=== PATIENT | male | born 1950 | race Caucasian/White ===

== ENCOUNTER 2017-07-31 17:22 | Emergency (ER) | payer OTHER, MEDICAID ==
--- NOTE | 2017-07-31 18:15 | EDPHY ---
General - History Smoking Status: Former smoker Narrative: CHIEF COMPLAINT: Right knee pain HISTORY OF PRESENT ILLNESS: Patient presents by EMS with reports of right knee pain. This started abruptly this afternoon. He said he went to [facility] this morning. He came home and with sleep. He he left his right knee brace on from chronic abnormalities. He awoke to get out of bed when his certified nurse today with there, and he had difficulty ambulating due to pain. He did not fall or strike the knee. He does not recall the knee bending or twisting awkwardly. He just felt a sudden onset of pain in the entire knee. Unable to bear weight due to it. No numbness or tingling distally. No injury elsewhere. No bleeding. No laceration. 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 No other associated complaints or modifying factors. ESTABLISHED ORTHOPEDIST: Dr. Ambrocio in [place] Dr. Mary, Plastics REVIEW OF SYSTEMS: Ten systems reviewed and are negative unless otherwise noted in the HPI PAST MEDICAL HISTORY: Right knee osteosarcoma PAST SURGICAL HISTORY: Right knee plastic surgery, and right knee TKA time 6 SOCIAL HISTORY: Nonsmoker. No alcohol use. FAMILY HISTORY: Noncontributory EXAMINATION General Appearance: Alert, no distress Cardiovascular: Pulses normal throughout. Symmetric DP pulses 2+. Symmetric PT pulses 2+. Brisk cap refill Neurological: A&O, light sensation symmetric on the dorsum of both feet. Normal proprioception of the right great toe., strength symmetric in both ankles. Skin: Warm and dry, no rash. No lacerations abrasions or contusions. Well- healed surgical incisions on the right knee consistent with his history Extremities: Abnormal appearance of the right knee that the patient says is baseline. Flexion extension of the right knee retain but painfully so. No special says performed due to extensive surgical correction of the knee. Psychiatric: Mood and affect normal DIFFERENTIAL DIAGNOSES: Including but not limited to fracture, subluxation, dislocation, sprain, strain MDM: 5:47 p.m. Acute right-sided knee pain in a patient with extensive history in the right knee. Although the knee is very unusual in appearance, the patient feels that this is relatively baseline for him. The pain however is not. He has no neurovascular complaints distally. He has no blunt trauma or fall on this knee. He retains flexion extension. He is being examined by myself and Dr. Marquez. He is in no acute distress with symmetric DP and PT pulses. X-rays pending. 6:20 p.m. X-rays reviewed with Dr. Marquez. These are similar to the 2013 x-rays here which were read as dislocation. The patient remains neuro intact with strong DP and PT pulses. 6:25 p.m. Contacted by radiologist Dr. Paige. We had extensive conversation about the x -ray. Difficult to tell this is truly dislocated or not. It is similar appearance from 2013 study which was read as dislocation. I have paged his established orthopedist in [facility] to discuss. 6:33 p.m. Case discussed with the patient's establish surgeon Dr. Ambrocio. He is requesting images. With the patient's permission, I have sent him images without any identifying information on them. He will review and call me back. This was done through the [facility] transfer Center recorded line. 6:[address] Ambrocio as reviewed the films but he contacted me and informed that this is a dislocation he would like the patient to be transferred to him directly. This [facility] be [facility] [place]. He does not want us to obtain a CT angiography of the leg. He does want the patient and a straight leg immobilizer. No further orders. We have adhere to these recommendations. We are proceeding with transfer as soon as possible. 6:40 p.m. I discussed this plan with the patient. He agrees. He is currently being placed in an immobilizer. He remains neurovascular intact distal to the injury. We are still coordinating with transfer Center. 7:00 p.m. Still awaiting the bed assignment from [facility]. Patient remains neurovascular intact with DP and PT pulses 2+. 7:15 p.m. Patient has been accepted to [facility], accepting physician is Dr. Ambrocio. He has been accepted to room 852. [facility] is arranging transportion due to significant delay on our end due to volume through [facility]. 8:00 p.m. Patient is currently being transferred to [facility] by [facility] crew. Prior to discharge I re-evaluated him, his DP and PT pulses remained intact. EMTALA form was completed and signed by Dr. Marquez. He was accepted directly and will likely undego surgical revision of his knee dislocation. CT angiography was not performed as he is symmetric with his vascular status, and the accepting physician did not want us to perform this. He was transferred in stable condition. ED Precautions: Worsening pain. Erythema, edema, cyanosis, pallor, paresthesia or anesthesia. (Rodolfo Eagle) Discussion: PHYSICIAN DOCUMENTATION: The patient was evaluated and managed by the Physician Car Hopper and myself. I have reviewed the chart and agree with the findings and plan of care as documented. In addition, I examined the patient myself at on arrival. History confirmed as complicated knee hardware with multiple revisions, baseline unusual and deformed external appearance, could not walk on it today after moving it trying to get out of bed. Does not have numbness or weakness in the foot. Physical findings as follows: T 36.9, Can move his right foot, it is warm and well perfused, dorsalis pedis pulse present. Chronically deformed right knee, no skin tenting, compartments soft. Patient will be transferred to [facility] for specialized orthopedic care in his revised artificial joints not available at [facility]. Discussed with the patient and consented. He would like to go to his surgeon down in [place], patient request. Transported by [facility]. Risk benefit alternatives discussed with the patient, consented. At this point he appears to have stable vascular status and although arterial injury is considered I think it is unlikely. I am the secondary supervising physician. (Giuseppe Marquez) - Objective Vital Signs: Initial Vital Signs Heart Rate 76 07/31/17 18:00 Respiratory Rate 16 07/31/17 18:00 Blood Pressure 120/76 07/31/17 18:00 O2 Sat (%) 95 07/31/17 18:00 O2 Delivery Mode Room Air Allergies/Adverse Reactions: sulfamethoxazole [From Bactrim] Allergy (Mild, Verified 08/07/12 14:56) Anxiety trimethoprim [From Bactrim] Allergy (Mild, Verified 08/07/12 14:56) Anxiety Home Medications: Medication Instructions Recorded Oxycodone Ir [Oxy Ir 5 mg (RX)] 1 tab PO TID PRN 06/26/12 Levaquin 07/31/17 Laboratory Results: Laboratory Results 07/31/17 19:20 07/31/17 19:20 07/31/17 07/31/17 19:20 19:20 PT 13.1 SEC SEC (12.0-15.0) INR 1.00 (0.83-1.16) APTT 25.9 SEC SEC (23.0-38.0) Sodium 137 mEq/L mEq/L (134-144) Potassium 4.7 mEq/L mEq/L (3.5-5.2) Chloride 100 mEq/L mEq/L (97-110) Carbon Dioxide 22 mEq/l mEq/l (22-31) Anion Gap 15 mEq/L mEq/L (8-16) BUN 22 mg/dL mg/dL (7-23) Creatinine 1.3 mg/dL mg/dL (0.7-1.3) Estimated GFR 55 Glucose 86 mg/dL mg/dL (70-100) Calcium 10.3 mg/dL mg/dL (8.5-10.4) Departure - Departure Disposition: [facility] Clinical Impression: Dislocation of knee, right, closed Qualifiers: Encounter type: initial encounter Qualified Code(s): S83.104A - Unspecified dislocation of right knee, initial encounter Condition: Good Referrals: AUDREY AMBROCIO [Non Staff Provider (MD)] - As per Instructions
[2017-07-31 19:28] LABS: % IMMATURE GRANULYOCYTES 0.6 % (0.0-1.1); ABSOLUTE IMMATURE GRANULOCYTES 0.05 10^3/uL (0.00-0.10); ADD DIFF? NO; ADD MORPH? NO; ADD SCAN? NO; ATYPICAL LYMPHOCYTE FLAG 0 (0-99); FRAGMENT RBC FLAG 0 (0-99); HEMATOCRIT 48.8 % (40.0-51.0); HEMOGLOBIN 16.3 g/dL (13.7-17.5); LEFT SHIFT FLG 0 (0-99); LIPEMIA HEMOLYSIS FLAG 80 (0-99); MEAN CELL HEMOGLOBIN 28.8 pg (27.9-34.1); MEAN CELL HEMOGLOBIN CONCENTR. 33.4 g/dL (32.4-36.7); MEAN CELL VOLUME 86.2 fL (81.5-99.8); MEAN PLATELET VOLUME 9.1 fL (8.7-11.7); PLATELET CLUMPS FLAG 10 (0-99); PLATELET COUNT 233 10^3/uL (150-400); RED BLOOD CELL COUNT 5.66 10^6/uL (4.40-6.38); RED CELL DISTRIBUTION WIDTH 17.1 % (11.5-15.2)
[2017-07-31 19:44] VITALS: PULSE 76; RESP 16; O2SAT 95
[2017-07-31 19:46] VITALS: TEMP 98.4
[2017-07-31 19:47] VITALS: BP 124/82
[2017-07-31 19:52] LABS: APTT 25.9 SEC (23.0-38.0); PROTIME(PATIENT) 13.1 SEC (12.0-15.0)
[2017-07-31 19:58] LABS: ANION GAP 15 mEq/L (8-16); CALCIUM 10.3 mg/dL (8.5-10.4); CARBON DIOXIDE 22 mEq/l (22-31); CHLORIDE 100 mEq/L (97-110); CREATININE 1.3 mg/dL (0.7-1.3); GLOMERULAR FILTRATION RATE 55; GLUCOSE 86 mg/dL (70-100); POTASSIUM 4.7 mEq/L (3.5-5.2); SODIUM 137 mEq/L (134-144)
== END 2017-07-31 19:47 | disposition short-term general hospital (02) ==
LOC: EDUNIT#
DX: S83.104A Unspecified dislocation of right knee, initial encounter (principal); Z87.891 Personal history of nicotine dependence; X58.XXXA Exposure to other specified factors, initial encounter
CPT/HCPCS: 73564; 99285; L1830; 82947-QW

== ENCOUNTER 2017-08-28 09:34 | Inpatient (IN) | payer OTHER, MEDICAID ==
[2017-08-28] MEDS ORDERED: NS 1,000 ML IV ONE (09:53)
[2017-08-28] MEDS ORDERED: ONDANSETRON DISINTEGRATING 4 MG TAB PO ONE (10:19)
[2017-08-28 10:43] LABS: PLATELET COUNT 313 10^3/uL (150-400)
[2017-08-28] MEDS ORDERED: PROMETHAZINE HCL 25 MG/ML INJ IVP ONE (10:53)
[2017-08-28] MEDS ORDERED: PROMETHAZINE HCL 25 MG/ML INJ ONE (10:54)
[2017-08-28] MEDS ORDERED: IOPAMIDOL (ISOVUE-300) 100 ML BTL ONE (11:32)
--- NOTE | 2017-08-28 12:13 | EDPHY ---
H & P Stated Complaint: N/V/D - Personal History Current Tetanus Diphtheria and Acellular Pertussis (TDAP): Unsure - Medical/Surgical History Hx Asthma: No Hx Chronic Respiratory Disease: No Hx Diabetes: No Hx Cardiac Disease: No Hx Renal Disease: No Hx Cirrhosis: No Hx Alcoholism: No Hx HIV/AIDS: No Hx Splenectomy or Spleen Trauma: No Other PMH: multiple knees surgeries, cerebral aneurysm, "prostate, lung, knee cancer" Hep C - Social History Smoking Status: Former smoker Time Seen by Provider: 08/28/17 09:36 HPI/ROS: Chief complaint: Nausea, vomiting and diarrhea History of present illness: This is a 67-year-old male who presents to the emergency department for nausea, vomiting and diarrhea. He reports the sudden onset of symptoms earlier this morning. Symptoms have been persistent with both continued vomiting and diarrhea. He has had associated abdominal pain. He does report he has noted some bright red blood in his stool. He denies other associated signs or symptoms including no fevers, no urinary symptoms, no mucus in the stools. He denies precipitating factors. He denies alleviating factors. No sick contacts. Review of systems: A 10 point review of systems was obtained and other than described above was negative (Lio Sosa) - Physical Exam Exam: General Appearance: Alert, unwell appearing. Eyes: Pupils equal and round no pallor or injection. ENT, Mouth: Mucous membranes moist. Respiratory: There are no retractions, lungs are clear to auscultation. Cardiovascular: Regular rate and rhythm. Gastrointestinal: Bowel sounds are normal. Abdomen is soft and nondistended. Diffuse tenderness to palpation. Neurological: Alert and oriented x4. Strength and sensation intact and symmetrical. Skin: Warm and dry, no rashes. Musculoskeletal: Neck is supple non tender. Extremities are symmetrical, full range of motion. Psychiatric: Patient is oriented X 3, there is no agitation. (Lio Sosa) Constitutional: Initial Vital Signs Temperature (C) 37.2 C 08/28/17 09:41 Heart Rate 72 08/28/17 09:41 Respiratory Rate 18 08/28/17 09:41 Blood Pressure 136/82 H 08/28/17 09:41 O2 Sat (%) 97 08/28/17 09:41 O2 Delivery Mode Room Air Allergies/Adverse Reactions: sulfamethoxazole [From Bactrim] Allergy (Mild, Verified 08/07/12 14:56) Anxiety trimethoprim [From Bactrim] Allergy (Mild, Verified 08/07/12 14:56) Anxiety Home Medications: Medication Instructions Recorded Oxycodone Ir [Oxy Ir 5 mg (RX)] 1 tab PO Q4-6PRN PRN 06/26/12 levOFLOXACIN [levAQUIN (*)] 500 mg PO DAILY@10 07/31/17 Fluticasone Nasal [Flonase Nasal 1 sprays NASAL DAILY 08/28/17 [place] (RX)] Potassium Chloride [Klor-Con M20] 20 meq PO DAILY 08/28/17 clonazePAM [Klonopin (*)] 0.5 mg PO DAILY PRN 08/28/17 Medical Decision Making ED Course/Re-evaluation: Patient seen in conjunction with my secondary supervising physician Dr. Hawa Ashford. Patient presents to the emergency department for nausea, vomiting and diarrhea. On presentation he is unwell appearing, vital signs are stable. He is worked up, significant findings noted for a new bladder mass that could be malignant. He is symptomatically treated. He remains unwell appearing. He is not tolerating oral challenges well. He will be admitted for symptomatic care and further evaluation of the bladder mass. (Lio Sosa) Differential Diagnosis: Included but not limited to gastritis, gastroenteritis, biliary tract disease, pancreatitis, colitis (Lio Sosa) Other Provider: I have evaluated and participated in the management of this patient. My co- signature indicates that I have reviewed this chart and that I agree with the findings and the plan of care as documented. My personal history and physical findings include: 67-year-old male with persistent nausea and vomiting and 1 episode of diarrhea. He has not been aware of blood in his vomitus or stool. He reports midepigastric pain that has also been persistent today. Despite IV fluids and antiemetics he has continued with nausea and occasional vomiting in the emergency department. CT scan of the abdomen and pelvis is negative for obstruction (a bladder mass is noted). He does not have fever. No recent travel or exposure to spoiled foods. No ill contacts. This could be a gastroenteritis, but he has not had much in the way of diarrhea. Initial hemoglobin and hematocrit are within normal limits. On exam he is a somewhat ill-appearing gentleman, anicteric, afebrile. Lungs are clear to auscultation. Heart has a regular rate and rhythm. Abdomen is soft with mild midepigastric tenderness, no guarding. Because of his ongoing nausea I feel that he will benefit from hospitalization and continued IV fluids and antiemetics. He is being admitted by Dr. Brianna ugarte. Patient is aware of the bladder mass. He has a history of cancers and will have outpatient evaluation. (Hawa Ashfodr) - Data Points Laboratory Results: Laboratory Results 08/28/17 10:32 08/28/17 10:32 Microbiology Results: MICROBIOLOGY 08/28/17 07:50 Stool Gastrointestinal Tract Panel (PCR) - Final Clostridium Difficile Detected Medications Given: Clonazepam (Klonopin) 0.5 mg PO DAILY PRN PRN Reason: Anxiety Stop: 02/24/18 15:33 Last Admin: 08/28/17 21:49 Dose: 0.5 mg Fentanyl (Sublimaze) 50 mcg IVP Q4HRS PRN PRN Reason: Pain, Severe Unable to Take PO Stop: 09/07/17 20:48 Last Admin: 08/28/17 21:49 Dose: 50 mcg Sodium Chloride (Ns) 1,000 mls @ 125 mls/hr IV CONT LOKESH Stop: 02/24/18 15:29 Last Admin: 08/29/17 10:49 Dose: 1,000 mls Levofloxacin (Levaquin) 500 mg PO DAILY@10 LOKESH PRN Reason: Protocol Stop: 09/28/17 09:59 Last Admin: 08/29/17 09:39 Dose: 500 mg Oxycodone HCl (Oxycodone Ir) 5 - 10 mg PO Q3HRS PRN PRN Reason: Pain, Severe Able to Take PO Stop: 09/07/17 15:29 Last Admin: 08/29/17 10:48 Dose: 5 mg Pantoprazole Sodium (Protonix) 40 mg IVP BID LOKESH Stop: 02/24/18 20:59 Last Admin: 08/29/17 09:39 Dose: 40 mg Promethazine HCl (Phenergan) 6.25 - 12.5 mg IVP Q6HRS PRN PRN Reason: Nausea/Vomiting, Use 2nd Stop: 02/24/18 15:29 Last Admin: 08/29/17 12:39 Dose: 6.25 mg Discontinued Medications Diphenhydramine HCl (Benadryl Injection) 25 mg IVP EDNOW ONE Stop: 08/28/17 10:54 Last Admin: 08/28/17 10:56 Dose: 25 mg Hydromorphone HCl (Dilaudid) 0.5 mg IVP EDNOW ONE Stop: 08/28/17 13:10 Last Admin: 08/28/17 13:25 Dose: 0.5 mg Sodium Chloride (Ns) 1,000 mls @ 0 mls/hr IV EDNOW ONE; Wide Open PRN Reason: Protocol Stop: 08/28/17 09:54 Last Admin: 08/28/17 09:56 Dose: 1,000 mls Ondansetron HCl (Zofran Odt) 4 mg PO EDNOW ONE Stop: 08/28/17 10:20 Last Admin: 08/28/17 10:22 Dose: 4 mg Promethazine HCl (Phenergan) 12.5 mg IVP EDNOW ONE Stop: 08/28/17 10:54 Last Admin: 08/28/17 10:56 Dose: 12.5 mg Departure - Departure Disposition: [facility] Clinical Impression: Bladder mass Vomiting Qualifiers: Vomiting type: unspecified Vomiting Intractability: non-intractable Nausea presence: with nausea Qualified Code(s): R11.2 - Nausea with vomiting, unspecified Diarrhea Qualifiers: Diarrhea type: unspecified type Qualified Code(s): R19.7 - Diarrhea, unspecified Abdominal pain Qualifiers: Abdominal location: generalized Qualified Code(s): R10.84 - Generalized abdominal pain Condition: Fair
[2017-08-28] MEDS ORDERED: HYDROmorphONE/DILAUDID 1 MG/ML INJ IVP ONE (13:09)
--- NOTE | 2017-08-28 16:22 | GHP ---
[f rep st] HISTORY AND PHYSICAL DATE OF ADMISSION: 08/28/2017 CHIEF COMPLAINT: Nausea and vomiting. HISTORY OF PRESENT ILLNESS: The patient is a pleasant 67-year-old gentleman with a complex medical h istory, who presented to the [facility] via ambulance after developing epigastric discomfort associated with nausea and recurrent vomiting, having 15-20 episodes of emesis throughout the morning. With the persistence of symptoms, the patient called EMS and was brought to [facility] for further evaluation. The patient states the emesis was not bloody in color, but it did appear dark green and dark black in color. No coffee grounds specifically were men tioned. He also had 1 episode of loose stools this morning as well, which he also described as dark in color, but not bloody. He has not had any recurrent diarrhea throughout the day today. No subjec tive fevers. No identified sick contacts. No recent travel outside the country. He did state that he took ibuprofen this morning for knee discomfort, but he does not have a history of regular NSAID u se. He has a history of a chronic right knee infection, for which he takes Levaquin 500 mg daily, an d is followed locally by Dr. Braden Sim with Infectious Disease. For his chronic pain related to the knee, he has oxycodone. In the emergency room, he had a CT scan done for further evaluation. This d id not show any gallbladder or bile duct findings. The pancreas was also normal. There was no evide nce of bowel obstruction or ileus. A bladder mass was identified, which did look suspicious for a ne oplasm, which was localized at the right UVJ with associated moderate right-sided hydronephrosis. Du e to the patient's persistent nausea and vomiting, he is being admitted for further investigation. PAST MEDICAL HISTORY: 1. Cerebral aneurysm status post coiling. 2. Prostate cancer status post radiation therapy. 3. Lung cancer status post left lower lobe lobectomy and chemotherapy. 4. 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 5. Osteosarcoma of the right knee with subsequent prosthesis placement. 6. Chronic hepatitis C. PAST SURGICAL HISTORY: 1. Aneurysm coiling. 2. Left lower lobe lung lobectomy. 3. Right knee surgery for excision of osteosarcoma and subsequent placements of prosthesis. This wa s followed by surgery at [facility] in [place]. PRESCRIPTION MEDICATIONS: 1. Levaquin 500 mg daily. 2. Oxycodone 5 mg every 4 hours as needed. ALLERGIES: Sulfa. SOCIAL HISTORY: The patient is originally from [place]. He was a previous smoker, but currently dickey s not smoke. He has never been and has no children. His power of audit officer, he states, would be his brother, who is a solar energy engineer in [place]. He is a full code status. FAMILY HISTORY: Father is . He from "old age." Mother is also . She fro m complications related to Parkinson disease. REVIEW OF SYSTEMS: CONSTITUTIONAL: No subjective fevers or chills. No recent weight changes. ENT: No recent upper respiratory illnesses. CARDIOVASCULAR: No complaints of chest pains, palpitations, o r syncopal episodes. RESPIRATORY: No complaints of shortness of breath or productive cough. GI: Posi tive for epigastric discomfort associated with nausea and recurrent vomiting. One episode of loose s tool today. No red blood noted in either the emesis or the stool, but he did note a dark-colored sto ol and emesis. PSYCHIATRIC: No history of anxiety or depression. ENDOCRINE: No history of diabetes o r thyroid abnormalities. SKIN: No new skin rashes. MUSCULOSKELETAL: Other than this chronic right k nee pain, no other new focal joint pains. PHYSICAL EXAM: VITAL SIGNS: Temperature 37.2, blood pressure 136/82, heart rate 72, respirations 18 , saturating 97% on room air. GENERAL: Patient resting comfortably in no acute distress. He is domi ke, alert, conversant, able to provide a good history. HEENT: Extraocular movements intact. Pupils are equal. No scleral icterus noted. NECK: Supple. No adenopathy. No thyroid enlargement apprec iated. CHEST: Clear on auscultation. Normal respiratory effort. HEART: Regular rate and rhythm. No murmurs. ABDOMEN: No tenderness elicited with palpation at the epigastrium. Bowel sounds are n ormal. Nondistended. : No Tello catheter in place. EXTREMITIES: No significant pitting edema. He does have a brace around his right knee, which I did not remove. NEUROLOGIC: Cranial nerves 2-1 2 appear intact. Strength 5/5 in all extremities, except limited testing of the right lower extremit y secondary to the placement of his brace. LABS: White blood cell count is 10, hemoglobin 13, platelets 313. Sodium is 146, potassium 4.1, chl oride 105, bicarb 26, BUN 38, creatinine 1.3, glucose of 134. AST 37, ALT 26, alkaline phosphatase 7 2, total protein is 8.7. Lipase is 111. Urinalysis showed 1+ leukocyte esterase with 50-180 WBCs, n egative for blood. IMAGING: CT abdomen and pelvis as detailed in HPI. ASSESSMENT AND PLAN: 1. Nausea with recurrent vomiting and 1 episode of diarrhea, uncertain etiology currently. This cer tainly could be infectious in origin, but I do not think we can exclude the possibility of an upper g astrointestinal bleed, either, in light of his epigastric discomfort. No worrisome findings on the C T imaging other than the bladder mass. His hemoglobin today is within normal limits at 13.7, but in looking back at a recent hemoglobin done approximately 1 month ago, it was at a level of 16.3. I rec ommend further evaluation with a GI pathogen panel, as well as Hemoccult of stools with serial hemogl obin and hematocrit. Would administer IV fluids overnight along with IV Protonix. 2. Bladder mass. We discussed this in detail and stressed the importance of outpatient followup on this issue. I did discuss with him that our step would really be a Urologic consultation and that we do have a urologist here in town, so he may not need to be traveling to [place] [facility]. I recommended that he consult with Dr. Garcia after hospital discharge, an d then a referral to Urology could take place at that point in time for further investigation. He do es have a smoking history previously. 3. Elevated protein. His total protein level was elevated at 8.7. I do not know if this could be s ome element of volume depletion from his recurrent nausea. We will plan on rechecking this tomorrow morning for reassessment after IV fluids overnight. 4. Possible urinary tract infection. Will check a urine culture. The patient is on daily Levaquin for his right knee infection. 5. Chronic right knee infection. This is related to a knee prosthesis which was placed after surger y for osteosarcoma. He is followed by Dr. Braden Sim here locally and his surgeon is in [facility] at the [facility]. 6. Bowel and bladder. Will hold off on stool softeners in light of the loose stools noted earlier. 7. Deep venous thrombosis prophylaxis. Will use compression devices overnight. Will hold on hepari n or Lovenox until we have an opportunity to trend his hemoglobin level. DISPOSITION: Will admit him under inpatient status, as we may need over 2 midnights in following his clinical status. /[id number]/MODL
[2017-08-28] MEDS: NS 1,000 ML IV SCH (18:02)
[2017-08-28] MEDS: PROMETHAZINE HCL 25 MG/ML INJ IVP PRN (18:07)
[2017-08-28] MEDS: PANTOPRAZOLE SODIUM 40 MG VIAL IVP SCH (19:56)
[2017-08-28] MEDS: fentaNYL 100 MCG/2 ML INJ IVP PRN (21:49)
[2017-08-28] MEDS: clonazePAM 0.5 MG TAB PO PRN (21:49)
[2017-08-29] MEDS: PANTOPRAZOLE SODIUM 40 MG VIAL IVP SCH (09:39)
--- NOTE | 2017-08-29 09:39 | ASMTCMCOM ---
CM Note CM Note Notes: 67 year old male admitted for N/V, bladder mass. He has a hx of cerebral aneurysm S/P coil, Prostate CA, Lung CA, bone CA R knee-prosthesis, chronic R knee infection, pain, Chronic Hep C. Has been involved with [facility]. CM to follow for discharge needs. Date Signed: 08/29/2017 09:39 AM Electronically Signed By:Sinai Villarreal LCSW
[2017-08-29] MEDS: oxyCODONE IR 5 MG TAB PO PRN ×2 (10:48→21:05)
[2017-08-29] MEDS: NS 1,000 ML IV SCH ×2 (10:49→18:28)
--- NOTE | 2017-08-29 12:10 | PDMN ---
Medical Necessity Medical necessity: Pt meets IP criteria per MD; est los >2 mn for eval/tx of nausea w/recurrent vomiting, bladder mass; admit for further workup/monitoring, IVFs & IV Protonix; hx cerebral aneurysm s/p coiling, prostate cancer s/p radiation therapy, lung cancer s/p L lower lobectomy & chemo, chronic R knee infection s/p R knee surgery (excision of osteosarcoma & prosthesis placement) on abx; per H&P & order 08/28/17
[2017-08-29] MEDS: PROMETHAZINE HCL 25 MG/ML INJ IVP PRN ×2 (12:39→18:28)
--- NOTE | 2017-08-29 14:54 | HOSPPROG ---
Hospitalist Progress Note Assessment/Plan: 67 yo M with hx of cerebral aneurysm, prostate and lung CA, chronic knee infection pw persistent n/v and diarrhea found to have c diff. # c diff: in the setting of prolonged chronic levaquin for chronic knee infection. Started on po vancomycin, diarrhea already seems to have improved. Given need for prolonged abx therapy for his knee will ask for ID consult to help with treatment plan/abx therapy going forward. # n/v: this has resolved essentially completely, was occurring in conjunction with c diff but unclear if related. Tolerating diet at this time. # bladder mass: noted on CT imaging, patient states he has had some urinary sxs in the past including increased UOP and occasionally passing something in the urine other than urine but not blood. Recommend f/u with urology as an OP. # pyuria: patient denies any current urinary sxs, though he is difficult to follow as he is very tangential in his history. At this time will hold off on any targeted tx for UTI pending urine culture results. # chronic knee infection: has been on suppressive therapy with levaquin as above , will ask ID to consult # dispo: IP status, will need > 48 hours stay for eval/mgmt of above Patient new to my care. Old records reviewed and summarized as above. Subjective: no significant overnight events, patient notes diarrhea nearly resolved and n/v essentially resolved overnight, very tangential Objective: Vital Signs Temp Pulse Resp BP Pulse Ox 37.1 C 59 L 17 141/78 H 95 08/29/17 13:03 08/29/17 13:03 08/29/17 13:03 08/29/17 13:03 08/29/17 13:03 Laboratory Results 08/29/17 04:41 08/29/17 04:41 08/28/17 08/29/17 08/30/17 05:59 05:59 05:59 Intake Total 1850 Output Total 680 625 Balance 1170 -625 awake alert nad anicteric op clear rrr no mrg cta b soft nt nd no cce, surgical site over right knee cdi, sutures in place oriented tangential pressured speech - Time Spent With Patient Time Spent with Patient: greater than 35 minutes Time Spent with Patient: Greater than 35 minutes spent on this patients care, greater than 50% of time spent counseling, educating, and coordinating care regarding the above mentioned plan. ICD10 Worksheet Patient Problems: Problems Problem Status Onset Dislocation of knee, right, closed Acute Vomiting Acute Diarrhea Acute Abdominal pain Acute Bladder mass Acute
[2017-08-29] MEDS: ONDANSETRON 4 MG/2 ML VIAL IVP PRN ×2 (15:37→21:05)
[2017-08-29] MEDS: FLUTICASONE NASAL 120 SPRAYS/16 GM MDI EACHNARE SCH (15:38)
[2017-08-29] MEDS ORDERED: VANCOMYCIN 125 MG/2.5 ML UDL PO SCH (16:00)
--- NOTE | 2017-08-29 17:22 | PCMIDPN ---
Assessment/Plan: Assessment/Plan: * Gastroenteritis: Symptom complex primarily epigastric pain with nausea and vomiting with limited amounts of diarrhea. Limited diarrhea atypical for C difficile colitis. May be of viral etiology despite negative PCR panel for viral etiologies. Positive C diff assay by PCR may simply represent colonization rather than being associated with disease presentation. Will therefore discontinue oral vancomycin and observe off antibiotics. If diarrhea becomes more prominent, then will require treatment of C difficile as has risk factor of chronic antibiotic use and significant healthcare contact including snf facility stay. 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 Recent surgery for mechanical failure of prosthesis. Continue suppressive oral levofloxacin as this will be necessary indefinitely. No active signs or symptoms of recurrent septic arthritis. * Hepatitis-C: Considered cured after 12 week course of Harvoni. 08/29/17 17:19 08/29/17 17:25 08/29/17 17:26 Subjective: Patient well known to me from prior care for right total knee arthroplasty septic arthritis on chronic suppressive levofloxacin who I am asked to see in consultation for nausea, vomiting and diarrhea with positive C difficile toxin by PCR. Patient complains of abrupt onset of nausea and vomiting on 2016. This occurred all night and he was unable to tolerate p. o. intake. He did have 1 episode of diarrhea preceding his vomiting. Yesterday, he did not have any diarrhea but also had crampy epigastric pain. This morning he felt improved but had recurrent nausea this p.m.. He describes having 1 episode of diarrhea today. He recently underwent revision of his right total knee arthroplasty/ tumor prosthesis at the [facility] for prosthesis failure. He does not describe having any hardware exposed. He now is at [facility] undergoing rehabilitation. Objective: Vital Signs Temp Pulse Resp BP Pulse Ox 37.2 C 71 17 127/73 H 95 08/29/17 16:47 08/29/17 16:47 08/29/17 16:47 08/29/17 16:47 08/29/17 16:47 Laboratory Results 08/29/17 15:55 08/29/17 04:41 08/28/17 08/29/17 08/30/17 05:59 05:59 05:59 Intake Total 1850 Output Total 680 1055 Balance 1170 -1055 Suppressive levofloxacin Oral vancomycin 125 mg four times daily ( has not started yet ) GI pathogen panel by PCR positive for C difficile - Physical Exam General Appearance: alert, no apparent distress, non-toxic EENT: No scleral icterus, No thrush Extremities: inflammation ( Right knee incision intact without erythema or drainage; palpable fluid present; nontender; mild overlying warmth) Abdomen: non-tender, No distended ICD10 Worksheet Patient Problems: Problems Problem Status Onset Abdominal pain Acute Bladder mass Acute Diarrhea Acute Vomiting Acute Dislocation of knee, right, closed Acute
[2017-08-29] MEDS: clonazePAM 0.5 MG TAB PO PRN (21:06)
[2017-08-30] MEDS: ONDANSETRON 4 MG/2 ML VIAL IVP PRN ×2 (09:05→14:33)
[2017-08-30] MEDS: FLUTICASONE NASAL 120 SPRAYS/16 GM MDI EACHNARE SCH (10:33)
--- NOTE | 2017-08-30 11:53 | HOSPPROG ---
Hospitalist Progress Note Assessment/Plan: 67 yo M with hx of cerebral aneurysm, hx of prostate and lung CA, chronic knee infection admitted with dehydration, N/V, and slight diarrhea. Initially started on PO Vancomycin for PCR + C-Diff. Upon ID eval, felt that this is likely colonization due to small amount of diarrhea. No further diarrhea, off abx still with decreased oral due to nausea still with generalized abd discomfort No generalized weakness, refuses PT #+PCR C-Diff. -likely colonization #Diarrhea: improving -Likely gastroenteritis #Nausea and vomiting -improving -trial of protonix -antiemetics #Dehydration -monitor off IVF (will stop today) -encourage PO # bladder mass: noted on CT imaging, patient states he has had some urinary sxs in the past including increased UOP and occasionally passing something in the urine other than urine but not blood. Recommend f/u with urology as an OP. # pyuria: patient denies any current urinary sxs, though he is difficult to follow as he is very tangential in his history. At this time will hold off on any targeted tx for UTI pending urine culture results. # chronic knee infection/Hx of septic arthritis on a pt with hx of Right Arthroplasty: has been on suppressive therapy with levaquin as above, will ask ID to consult #Hx of Hep C # dispo: IP status, will need > 48 hours stay for eval/mgmt of above. Keep inpatient Patient new to my care. Old records reviewed and summarized as above. Subjective: feels better. no further diarrhea. Still with Nause. Some abd discomfort Objective: Vital Signs Temp Pulse Resp BP Pulse Ox 36.6 C 71 16 118/78 90 L 08/30/17 07:49 08/30/17 07:49 08/30/17 07:49 08/30/17 07:49 08/30/17 07:49 Laboratory Results 08/30/17 08:00 08/30/17 08:00 08/29/17 08/30/17 08/31/17 05:59 05:59 05:59 Intake Total 1850 1592 Output Total 680 1555 375 Balance 1170 37 -375 - Physical Exam Constitutional: no apparent distress Eyes: PERRL Ears, Nose, Mouth, Throat: moist mucous membranes, hearing normal Cardiovascular: regular rate and rhythym, No edema Respiratory: no respiratory distress, no rales or rhonchi, clear to auscultation Gastrointestinal: normoactive bowel sounds, soft, non-tender abdomen, no palpable masses Skin: warm Musculoskeletal: full muscle strength Neurologic: AAOx3 Psychiatric: interacting appropriately, not anxious, not encephalopathic Lymph, Heme, Immunologic: No petechiae ICD10 Worksheet Patient Problems: Problems Problem Status Onset Abdominal pain Acute Bladder mass Acute Diarrhea Acute Vomiting Acute Dislocation of knee, right, closed Acute
[2017-08-30] MEDS: PANTOPRAZOLE SODIUM 40 MG TAB PO SCH (14:23)
[2017-08-30] MEDS: PROMETHAZINE HCL 25 MG/ML INJ IVP PRN ×2 (16:00→22:38)
--- NOTE | 2017-08-30 19:41 | PCMIDPN ---
Assessment/Plan: Assessment/Plan: * Gastroenteritis: Overall markedly improved with some residual nausea but no recurrent vomiting and no subsequent diarrhea. Suspect most likely due to viral gastroenteritis with C difficile toxin positivity representing colonization rather than C difficile colitis. Continue to observe without therapy directed at C difficile. Advised patient to notify me if he has recurrent diarrhea at which point in time would proceed with oral vancomycin for C difficile. Likely can be discharged home tomorrow if nausea and vomiting controlled with adequate p.o. intake. 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 Recent surgery for mechanical failure of prosthesis. Clinically without active findings to suggest recurrent septic arthritis. Continue suppressive oral levofloxacin. * Hepatitis-C: Considered cured after 12 week course of Harvoni. 08/30/17 19:38 Subjective: Overall feels improved today with some residual nausea but no vomiting. No further diarrhea. Ate some breakfast. Objective: Vital Signs Temp Pulse Resp BP Pulse Ox 36.7 C 70 18 150/83 H 97 08/30/17 16:17 08/30/17 16:17 08/30/17 16:17 08/30/17 16:17 08/30/17 16:17 Laboratory Results 08/30/17 08:00 08/30/17 08:00 08/29/17 08/30/17 08/31/17 05:59 05:59 05:59 Intake Total 1850 1592 500 Output Total 680 1555 375 Balance 1170 37 125 Suppressive oral levofloxacin - Physical Exam General Appearance: alert, no apparent distress EENT: No scleral icterus, No thrush Cardiac/Chest: regular rate, rhythm Extremities: other ( right knee incision without erythema or drainage) Abdomen: non-tender, No distended ICD10 Worksheet Patient Problems: Problems Problem Status Onset Abdominal pain Acute Bladder mass Acute Diarrhea Acute Vomiting Acute Dislocation of knee, right, closed Acute
[2017-08-30] MEDS: oxyCODONE IR 5 MG TAB PO PRN (19:58)
[2017-08-30] MEDS: clonazePAM 0.5 MG TAB PO PRN (19:59)
[2017-08-30] MEDS: fentaNYL 100 MCG/2 ML INJ IVP PRN (22:37)
[2017-08-31] MEDS: PANTOPRAZOLE SODIUM 40 MG TAB PO SCH ×2 (08:29→20:25)
[2017-08-31] MEDS: ONDANSETRON 4 MG/2 ML VIAL IVP PRN ×2 (12:05→20:25)
[2017-08-31] MEDS: FLUTICASONE NASAL 120 SPRAYS/16 GM MDI EACHNARE SCH (12:08)
[2017-08-31] MEDS: clonazePAM 0.5 MG TAB PO PRN (13:17)
[2017-08-31] MEDS: PROMETHAZINE HCL 25 MG/ML INJ IVP PRN (13:17)
[2017-08-31] MEDS ORDERED: ONDANSETRON DISINTEGRATING 4 MG TAB PO PRN (14:32)
[2017-08-31] MEDS ORDERED: PROTOCOL POTASSIUM 1 DOSE MISC PRN (14:33)
[2017-08-31] MEDS ORDERED: PROTOCOL MAGNESIUM 1 DOSE IV PRN (14:33)
--- NOTE | 2017-08-31 14:37 | HOSPPROG ---
Hospitalist Progress Note Assessment/Plan: 67 yo M with hx of cerebral aneurysm, hx of prostate and lung CA, chronic knee infection admitted with dehydration, N/V, and slight diarrhea. Initially started on PO Vancomycin for PCR + C-Diff. Upon ID eval, felt that this is likely colonization due to small amount of diarrhea. No further diarrhea, off abx still with decreased oral due to nausea. Unfortunately his nause has worsened late morning, early afternoon still with generalized abd discomfort, although better No generalized weakness, refuses PT #+PCR C-Diff. -likely colonization #Diarrhea: resolved -Likely gastroenteritis #Nausea and vomiting -persists -Protonix seems to have helped, will increase to BID dosing -antiemetics, in addition to IV will provide PO -restart IVF #Dehydration -restart IVF -encourage PO # bladder mass: noted on CT imaging, patient states he has had some urinary sxs in the past including increased UOP and occasionally passing something in the urine other than urine but not blood. Recommend f/u with urology as an OP. # pyuria: patient denies any current urinary sxs, though he is difficult to follow as he is very tangential in his history. At this time will hold off on any targeted tx for UTI pending urine culture results. # chronic knee infection/Hx of septic arthritis on a pt with hx of Right Arthroplasty: has been on suppressive therapy with levaquin as above, will ask ID to consult #Hx of Hep C # dispo: IP status. Hopeful for d/c tomorrow Subjective: Has nausea, emesis. abd pain is better. No CP or SOB. Objective: Vital Signs Temp Pulse Resp BP Pulse Ox 36.6 C 96 18 140/98 H 93 08/31/17 13:37 08/31/17 13:37 08/31/17 13:37 08/31/17 13:37 08/31/17 13:37 Laboratory Results 08/30/17 08:00 08/30/17 08:00 08/30/17 08/31/17 09/01/17 05:59 05:59 05:59 Intake Total 1592 800 Output Total 1555 875 Balance 37 -75 - Physical Exam Constitutional: no apparent distress, appears nourished Eyes: PERRL, EOMI Ears, Nose, Mouth, Throat: moist mucous membranes, hearing normal Cardiovascular: regular rate and rhythym, No edema Respiratory: no respiratory distress, no rales or rhonchi, clear to auscultation Gastrointestinal: normoactive bowel sounds, soft, non-tender abdomen Skin: warm Musculoskeletal: full muscle strength, No generalized weakness Neurologic: AAOx3 Psychiatric: interacting appropriately, not anxious, not encephalopathic ICD10 Worksheet Patient Problems: Problems Problem Status Onset Abdominal pain Acute Bladder mass Acute Diarrhea Acute Vomiting Acute Dislocation of knee, right, closed Acute
[2017-08-31] MEDS ORDERED: POTASSIUM CL 10 MEQ TAB PO ONE (20:15)
[2017-08-31] MEDS: POTASSIUM Cl (KCl) 20 MEQ in 1/2 NS 1,000 ML IV SCH (20:26)
[2017-09-01] MEDS: FLUTICASONE NASAL 120 SPRAYS/16 GM MDI EACHNARE SCH (09:30)
[2017-09-01] MEDS: PANTOPRAZOLE SODIUM 40 MG TAB PO SCH ×2 (09:30→20:38)
[2017-09-01] MEDS: POTASSIUM Cl (KCl) 20 MEQ in 1/2 NS 1,000 ML IV SCH (11:15)
--- NOTE | 2017-09-01 13:56 | HOSPPROG ---
Hospitalist Progress Note Assessment/Plan: 67 yo M with hx of cerebral aneurysm, hx of prostate and lung CA, chronic knee infection admitted with dehydration, N/V, and slight diarrhea. Initially started on PO Vancomycin for PCR + C-Diff. Upon ID eval, felt that this is likely colonization due to small amount of diarrhea. No further diarrhea, off abx still with decreased oral due to nausea. IVF were restarted again last night still with generalized abd discomfort, although better No generalized weakness, refuses PT #+PCR C-Diff. -likely colonization #Diarrhea: resolved -Likely gastroenteritis #Nausea and vomiting -persists -Protonix seems to have helped, cont BID dosing which was increased on 09/01 -antiemetics,stop IV. Cont PO #Dehydration -resolving # bladder mass: noted on CT imaging, patient states he has had some urinary sxs in the past including increased UOP and occasionally passing something in the urine other than urine but not blood. Recommend f/u with urology as an OP. # pyuria: patient denies any current urinary sxs, though he is difficult to follow as he is very tangential in his history. At this time will hold off on any targeted tx for UTI pending urine culture results. # chronic knee infection/Hx of septic arthritis on a pt with hx of Right Arthroplasty: has been on suppressive therapy with levaquin as above, ID is following #Hx of Hep C # dispo: IP status. Plan: -Per above -Stop IVF -Stop IV antiemetics, cont PO. -PPI BID -Hopeful d/c soon Objective: Vital Signs Temp Pulse Resp BP Pulse Ox 37.1 C 77 16 149/82 H 96 08/31/17 20:11 08/31/17 20:11 08/31/17 20:11 08/31/17 20:11 08/31/17 20:11 Microbiology 08/29/17 18:33 Urine Culture - Final Urine,Clean Catch Two [place] Types Laboratory Results 08/30/17 08:00 09/01/17 08:37 08/31/17 09/01/17 09/02/17 05:59 05:59 05:59 Intake Total 800 1700 Output Total 875 400 Balance -75 1300 ICD10 Worksheet Patient Problems: Problems Problem Status Onset Abdominal pain Acute Bladder mass Acute Diarrhea Acute Vomiting Acute Dislocation of knee, right, closed Acute
--- NOTE | 2017-09-01 15:37 | ASMTCMCOM ---
CM Note CM Note Notes: Pt admitted with septic cellulitis. Plan is to transition to oral ABX and DC with no needs. Pt will f/u with outpt urology for bladder mass. C/M available if needs change. Date Signed: 09/01/2017 03:37 PM Electronically Signed By:Mae Arce LCSW
[2017-09-01] MEDS: oxyCODONE IR 5 MG TAB PO PRN ×2 (16:51→21:13)
[2017-09-01 21:08] VITALS: TEMP 98.3; O2SAT 94
[2017-09-01] MEDS: PROMETHAZINE HCL 25 MG/ML INJ IVP PRN (21:12)
[2017-09-02] MEDS: POTASSIUM Cl (KCl) 20 MEQ in 1/2 NS 1,000 ML IV SCH (00:37)
[2017-09-02] MEDS: oxyCODONE IR 5 MG TAB PO PRN (09:54)
[2017-09-02] MEDS: PROMETHAZINE HCL 25 MG/ML INJ IVP PRN (09:56)
[2017-09-02] MEDS: PANTOPRAZOLE SODIUM 40 MG TAB PO SCH (09:56)
--- NOTE | 2017-09-02 10:04 | PDIAF ---
- Diagnosis Diagnosis: abdominal pain Code Status: Full Code - Medication Management Discharge Medications: Medications to Continue on Transfer Oxycodone Ir [Oxy Ir 5 mg (RX)] 1 tab PO Q4-6PRN PRN 06/26/12 [Last Taken ] levOFLOXACIN [levAQUIN (*)] 500 mg PO DAILY@10 07/31/17 [Last Taken 08/27/17] Fluticasone Nasal [Flonase Nasal [place]] 1 sprays NASAL DAILY 08/28/17 [Last Taken Unknown] Potassium Chloride [Klor-Con M20] 20 meq PO DAILY 08/28/17 [Last Taken Unknown] clonazePAM [Klonopin (*)] 0.5 mg PO DAILY PRN 08/28/17 [Last Taken Unknown] Ondansetron Odt [Zofran Odt 4 mg (*)] 4 mg PO Q6HRS PRN #30 tab 09/02/17 [Last Taken Unknown] Pantoprazole Sodium [Protonix 40mg (*)] 40 mg PO DAILY #30 tab 09/02/17 [Last Taken Unknown] oxyCODONE IR [Oxycodone Ir (*)] 5 mg PO Q6 PRN #10 tab 09/02/17 [Last Taken Unknown] Discharge Medications: Refer to the Discharge Home Medication list for PRN reason. - Orders Services needed: Home Care, Registered Nurse Home Care Face to Face: I certify that this patient was under my care and that I had the required [id number] encounter meeting the encounter requirements on the discharge day. My findings support the fact that the patient is homebound as defined in Home Care Face to Face Continued: CMS Chapter 7 Medicare Benefits Manual 30.1.1 , The condition of the patient is such that there exists a normal inability to leave home and consequently, leaving home would require a considerable and taxing effort. Isolation Type: CDIFF Isolation, Contact Isolation Diet Recommendation: no restrictions on diet Diet Texture: Regular Texture Diet - Follow Up Care Current Providers and Referrals: Capo Garcia MD [Primary Care Provider] - As per Instructions Morelia Griffith MD [Medical Doctor] -
[2017-09-02 10:27] VITALS: BP 130/82; PULSE 93; RESP 17
[2017-09-02] MEDS ORDERED: POTASSIUM CL 10 MEQ TAB PO ONE (11:08)
[2017-09-02] MEDS: FLUTICASONE NASAL 120 SPRAYS/16 GM MDI EACHNARE SCH (11:58)
--- NOTE | 2017-09-02 13:49 | ASDISCHSUM ---
Discharge Information Plan Status:Home with Home Health Medically Cleared to Leave:09/01/2017 Discharge Date:09/02/2017 12:19 PM D/C Disposition:Home Health Service ADT D/C Disposition:Home, Routine, Self-Care Projected Discharge Date:09/02/2017 11:00 AM Transportation at D/C:Taxicab Discharge Delay Reason: Follow-Up Date:09/02/2017 11:00 AM Discharge Slot: Final Diagnosis: Placement Information Referral Type:*Home Health Care Services Referral ID:[id number] Provider Name:[facility] [place] Address 1:[address] [place] [address] Address 2: City:[place] Selection Factors: State:[place] Patient Contact Information Contact Name:TRISTIAN Relationship: Address: City:[place] Alternate Phone: State/Zip Code:[place] Email: Financial Information Financial Class: Primary Plan Desc:MEDICARE INPATIENT Primary Plan Number:[id number] Secondary Plan Desc:MEDICA[place] Secondary Plan Number:[id number] Assessment Information LACE LACE Length of stay for Answers: Less than 1 day current admission Acuity / Level of Care Answers: Was the patient admitted to hospital via the emergency department? Yes: Emergency dept visits in Answers: 2 last 6 months Score: 5 Date Signed: 08/28/2017 12:33 PM Electronically Signed By:Ilia Kessler LCSW [facility] CM Progress Note CM Note CM Note Notes: 67 year old male admitted for N/V, bladder mass. He has a hx of cerebral aneurysm S/P coil, Prostate CA, Lung CA, bone CA R knee-prosthesis, chronic R knee infection, pain, Chronic Hep C. Has been involved with [facility]. CM to follow for discharge needs. Date Signed: 08/29/2017 09:39 AM Electronically Signed By:Sinai Villarreal LCSW [facility] CM Progress Note CM Note CM Note Notes: Pt admitted with septic cellulitis. Plan is to transition to oral ABX and DC with no needs. Pt will f/u with outpt urology for bladder mass. C/M available if needs change. Date Signed: 09/01/2017 03:37 PM Electronically Signed By:Mae Arce LCSW Case Management Discharge Plan Note Case Management Discharge Discharge Order Complete? Answers: Yes Patient to Obtain Answers: Independently Medications Transportation Arranged Answers: Taxi - Self Pay Faxed Final Orders Answers: Yes Agency/Facility Transfer Answers: Yes Notes: [facility] Report Printed & Faxed to Receiving Agency Family Notified Answers: No Notes: per pt Discharge Comments Notes: 09/02/2017 Case Management Note Met w/pt. Pt plans to pay for [employer] to transport home. Resumed home care services with [facility] at pt request. Faxed orders and called [facility]. Services to start tomorrow. Notified [facility] of need to start meals at pt request. Date Signed: 09/02/2017 11:04 AM Electronically Signed By:Taylor Del Rio RN Intervention Information Intervention Type:*IM-Signed Date of Service:09/02/2017 11:50 AM Patient Type:Inpatient Staff Member:JESSICA Del Rio, Taylor Hours: Discipline: Severity: Comment:
--- NOTE | 2017-09-03 04:24 | GDS ---
[f rep st] DISCHARGE SUMMARY DISCHARGE DIAGNOSES: Include: 1. Acute abdominal discomfort with nausea vomiting and diarrhea. Suspected viral gastroenteritis. 2. Clostridium difficile colonization. 3. Dyspepsia. 4. Dehydration. 5. Suspected bladder mass seen on imaging. 6. Chronic septic arthritis. 7. History of Hepatitis C. HISTORY OF PRESENT ILLNESS: A 67-year-old male with a history of a cerebral aneurysm, prostate cance r, lung cancer, and chronic infection of the knee who presents with nausea, vomiting, and mild diarrh ea. For details of the patient's initial presentation, please see the history and physical dated . Consultative services include Infectious Disease. PROCEDURES: On 08/28/2017, the patient had a CT of the abdomen which showed a right posterior bladde r mass with moderate right-sided hydro suspicious for neoplasm, no bowel obstruction, or appendicitis noted. HOSPITAL COURSE: By issue: 1. Suspected viral gastroenteritis. The patient was provided supportive care and had improvement in his symptoms. GI pathogen PCR did show C. difficile. However, on review by Infectious Disease, the clinical syndrome of colitis was thought unlikely based on the paucity of patient's diarrhea, likely thought to be colonization and not warranting treatment. The patient had near resolution of all of his symptoms on the day of disposition and was tolerating p.o. intake. We have encouraged good oral nutrition and hydration post disposition and outpatient followup with his primary care provider. 2. Bladder mass. The patient had this visualized on CT abdomen. We have discussed this with him an d the importance of outpatient urologic followup. The patient has been provided with Urology contact numbers for post discharge followup. 3. Chronic septic arthritis. The patient is continued on his chronic levofloxacin. 4. Dyspepsia. The patient was initiated on daily proton pump inhibitor. This likely can be discont inued after resolution of his acute illness. He can follow with Dr. Garcia for ongoing symptoms and appropriate timing of discontinuation. MEDICATIONS: At the time of disposition: Please reference the med rec printed on 09/02/2017. FOLLOWUP APPOINTMENTS: Include: 1. With outpatient Urology, [facility], Dr. Doss's group. 2. With Dr. Garcia, his primary care provider, in the next 1-2 weeks for post disposition followup. PENDING STUDIES: At the time of this dictation are none. TIME SPENT: I spent greater than 30 minutes in the planning and coordination of this discharge. /[id number]
== END 2017-09-02 12:19 | disposition home or self-care (01) | DRG 392 ==
LOC: EDUNIT# → F1N 16:14
PROVIDERS: ADMIT Internal Medicine; ATTEND Internal Medicine
DX: A08.4 Viral intestinal infection, unspecified (principal); M00.861 Arthritis due to other bacteria, right knee; E86.0 Dehydration; D41.4 Neoplasm of uncertain behavior of bladder; Z85.46 Personal history of malignant neoplasm of prostate; Z85.118 Personal history of other malignant neoplasm of bronchus and lung; Z87.891 Personal history of nicotine dependence
CPT/HCPCS: 96374; J1170; J1200; J2405; J2550; J3010; Q9967

== ENCOUNTER 2017-09-11 08:36 | Emergency (ER) | payer OTHER, MEDICAID ==
[2017-09-11 08:43] VITALS: RESP 16; TEMP 97.9; O2SAT 96
--- NOTE | 2017-09-11 09:16 | EDPHY ---
General - History Smoking Status: Former smoker Time Seen by Provider: 09/11/17 08:58 Narrative: CHIEF COMPLAINT: Blood in stool, blood in urine HISTORY OF PRESENT ILLNESS: The patient complains of blood in stool and blood in urine. He says that this morning he was having a bowel movement when he stood up and noted some blood in the stool. He describes it as bright red blood, "small round clumps." One single bowel movement with this. He has not had another bowel movement. This was not painful. He was not straining. He did feel that it was a very hard stool. He has had episode of hemorrhoid in the past but nothing recently. Does not take any anticoagulants. No nausea or vomiting. No blood from the gums or teeth. He did note some hematuria with the urination just after the bowel movement. This was what concerned him, less so the blood in the stool. He has had some difficulty urinating with this as well. He has had no flank pain. No dysuria or frequent urination. No fever chills. No flank pain. No itching. No rash or discoloration of skin. Recently in the hospital and I reviewed this discharge summary. He has felt well since discharge home until this. REVIEW OF SYSTEMS: Ten systems reviewed and are negative unless otherwise noted in the HPI PCP: Dr. Garcia SPECIALISTS: Scheduled to see Dr. Griffith on September 25 PAST MEDICAL HISTORY: Hep C status post treatment, chronic right knee difficulties with 6 surgical replacement, reflux, chronic pain PAST SURGICAL HISTORY: Multiple orthopedic surgeries SOCIAL HISTORY: Nonsmoker. No alcohol use. Lives independently FAMILY HISTORY: Noncontributory EXAMINATION General Appearance: Alert, no distress Head: normocephalic, atraumatic Eyes: Pupils equal and round, no conjunctival pallor or injection. No icterus. ENT, Mouth: Mucous membranes moist Neck: Normal inspection, supple, non-tender Respiratory: Lungs are clear to auscultation Cardiovascular: Regular rate and rhythm. No murmur Gastrointestinal: Abdomen is soft and nontender. No tympany rigidity. No guarding. No distention. There is a firmness in the suprapubic region of uncertain etiology. No CVA tenderness. Rectal exam: No blood visualized. No stool obtained. No firmness or abnormality. Back: non-tender, no bony abnormalities Neurological: A&O, nonfocal, normal gait Skin: Warm and dry, no rash Extremities: Nontender, no pedal edema Psychiatric: Mood and affect normal DIFFERENTIAL DIAGNOSES: Including but not limited to lower gi bleed, internal hemorrhoid, rectal mass, bladder mass, ureteral stone, nephrolithiasis MDM: 9:13 a.m. Complaints of blood in stool and hematuria of 1 day duration. Patient has no complaints of pain anywhere out of the norm for him. He has no fever. No vomiting or hematemesis. He has only had 1 bowel movement the did have a blood present. He has had only 1 urination this morning. He has no use of blood thinners. Does have a recent CT scan that shows a mass suspicious for neoplasm in the right posterior portion of the bladder near the UVJ. He does not take any blood thinners. I have ordered laboratory studies to verify his hemoglobin and coagulation study, as well as urinalysis. His abdominal exam is benign. Rectal exam was benign but did not retrieve any stool. There was no bright red blood seen on the glove during my rectal exam. 9:30 a.m. Case discussed with Dr. Gonsalez. Patient re-evaluated. He continues to feel well. We discussed the likelihood benign scenario of the blood in stool. There is no abnormality of the GI tract on recent CT scan. He has no abdominal pain or ongoing bleeding. No constipation. He has no flank pain. No norma blood on rectal examination. We discussed the hematuria being likely with a identified a bladder mass on previous CT scan. We discussed discharge home with follow-up with primary care physician for the blood in stool. We discussed contacting the urologist that he is scheduled to see regarding the blood in the urine. We discussed return to the emergency department for any worsening bleeding, difficulty with bowel movement or urination, flank pain, fever, chills, chest pain, shortness of breath or lightheadedness. He is comfortable this plan and discharged home stable condition per SUPERVISION: Patient was independently examined, but I discussed the case with my secondary supervising physician Dr. Gonsalez ([facility]) Medical Decision Making: PHYSICIAN DOCUMENTATION: The patient was evaluated and managed by the Physician Spinner Tender. My co- signature indicates that I have reviewed this chart and I agree with the findings and plan of care as documented. I am the secondary supervising physician. (Waylon Gonsalez) - Objective Vital Signs: Initial Vital Signs Temperature (C) 97.9 F 01/08/18 08:39 Heart Rate 85 09/11/17 08:39 Respiratory Rate 16 09/11/17 08:39 Blood Pressure 127/73 H 09/11/17 08:39 O2 Sat (%) 96 09/11/17 08:39 O2 Delivery Mode Room Air Allergies/Adverse Reactions: sulfamethoxazole [From Bactrim] Allergy (Mild, Verified 08/07/12 14:56) Anxiety trimethoprim [From Bactrim] Allergy (Mild, Verified 08/07/12 14:56) Anxiety Home Medications: Medication Instructions Recorded Oxycodone Ir [Oxy Ir 5 mg (RX)] 1 tab PO Q4-6PRN PRN 06/26/12 levOFLOXACIN [levAQUIN (*)] 500 mg PO DAILY@07/31/17 Fluticasone Nasal [Flonase Nasal 1 sprays NASAL DAILY 08/28/17 [place]] Potassium Chloride [Klor-Con M20] 20 meq PO DAILY 08/28/17 clonazePAM [Klonopin (*)] 0.5 mg PO DAILY PRN 08/28/17 Ondansetron Odt [Zofran Odt 4 mg 4 mg PO Q6HRS PRN #30 tab 09/02/17 (*)] Pantoprazole Sodium [Protonix 40mg 40 mg PO DAILY #30 tab 09/02/17 (*)] oxyCODONE IR [Oxycodone Ir (*)] 5 mg PO Q6 PRN #10 tab 09/02/17 Laboratory Results: Laboratory Results 09/11/17 09:25 09/11/17 09:25 09/11/17 09/11/17 09/11/17 09:30 09:25 09:25 WBC 9.80 10^3/uL H 10^3/uL (3.80-9.50) RBC 4.41 10^6/uL 10^6/uL (4.40-6.38) Hgb 12.2 g/dL L g/dL (13.7-17.5) Hct 37.5 % L % (40.0-51.0) MCV 85.0 fL fL (81.5-99.8) MCH 27.7 pg L pg (27.9-34.1) MCHC 32.5 g/dL g/dL (32.4-36.7) RDW 15.5 % H % (11.5-15.2) Plt Count 231 10^3/uL 10^3/uL (150-400) MPV 9.3 fL fL (8.7-11.7) Neut % (Auto) 67.0 % % (39.3-74.2) Lymph % (Auto) 20.8 % % (15.0-45.0) [place] % (Auto) 9.6 % % (4.5-13.0) Eos % (Auto) 1.6 % % (0.6-7.6) Baso % (Auto) 0.3 % % (0.3-1.7) Nucleat RBC Rel Count 0.0 % % (0.0-0.2) Absolute Neuts (auto) 6.56 10^3/uL H 10^3/uL (1.70-6.50) Absolute Lymphs (auto) 2.04 10^3/uL 10^3/uL (1.00-3.00) Absolute Monos (auto) 0.94 10^3/uL H 10^3/uL (0.30-0.80) Absolute Eos (auto) 0.16 10^3/uL 10^3/uL (0.03-0.40) Absolute Basos (auto) 0.03 10^3/uL 10^3/uL (0.02-0.10) Absolute Nucleated RBC 0.00 10^3/uL 10^3/uL (0-0.01) Immature Gran % 0.7 % % (0.0-1.1) Immature Gran # 0.07 10^3/uL 10^3/uL (0.00-0.10) Sodium 140 mEq/L mEq/L (134-144) Potassium 4.2 mEq/L mEq/L (3.5-5.2) Chloride 106 mEq/L mEq/L (97-110) Carbon Dioxide 22 mEq/l mEq/l (22-31) Anion Gap 12 mEq/L mEq/L (8-16) BUN 35 mg/dL H mg/dL (7-23) Creatinine 1.4 mg/dL H mg/dL (0.7-1.3) Estimated GFR 51 Glucose 87 mg/dL mg/dL (70-100) Calcium 9.4 mg/dL mg/dL (8.5-10.4) Urine Color RED Urine Appearance MODERATELY TURBID Urine pH 6.0 (5.0-7.5) Ur Specific [place] 1.015 (1.002-1.030) Urine Protein 2+ H (NEGATIVE) Urine Ketones NEGATIVE (NEGATIVE) Urine Blood 2+ H (NEGATIVE) Urine Nitrate NEGATIVE (NEGATIVE) Urine Bilirubin NEGATIVE (NEGATIVE) Urine Urobilinogen NEGATIVE EU EU (0.2-1.0) Ur Leukocyte Esterase 2+ H (NEGATIVE) Urine RBC 50-182 /hpf H /hpf (0-3) Urine WBC 50-182 /hpf H /hpf (0-3) Ur Epithelial Cells NONE SEEN /lpf /lpf (NONE-1+) Urine Bacteria 1+ /hpf H /hpf (NONE SEEN) Hyaline Casts 5-15 /lpf /lpf (0-1) Urine Glucose NEGATIVE (NEGATIVE) Medications Given: Discontinued Medications Oxycodone HCl (Oxycontin) 10 mg PO ONCE ONE Stop: 09/11/17 09:34 Last Admin: 09/11/17 10:15 Dose: Not Given Oxycodone HCl (Oxycodone Ir) 10 mg PO EDNOW ONE Stop: 09/11/17 09:57 Last Admin: 09/11/17 09:59 Dose: 10 mg Departure - Departure Disposition: Home, Routine, Self-Care Clinical Impression: Mass of urinary bladder, Blood in stool Hematuria Qualifiers: Hematuria type: unspecified type Qualified Code(s): R31.9 - Hematuria, unspecified Condition: Good Instructions: Hematuria (ED) Additional Instructions: 1. Contact your primary care physician for outpatient follow-up for the blood in stool 2. Contact Dr. Griffith for outpatient follow-up for the previously identified bladder mass and hematuria 3. Return to ED for any return of bleeding, abdominal pain, flank pain, fever, difficulty with bowel movement, difficulty with urination, lightheadedness, dizziness or chest pain Referrals: Capo Garcia MD [Primary Care Provider] - As per Instructions Morelia Griffith MD [Medical Doctor] - As per Instructions
[2017-09-11 09:37] LABS: PLATELET COUNT 231 10^3/uL (150-400)
[2017-09-11 09:53] VITALS: BP 124/80; PULSE 76
[2017-09-11] MEDS ORDERED: oxyCODONE IR 5 MG TAB PO ONE (09:56)
== END 2017-09-11 10:15 | disposition home or self-care (01) ==
LOC: EDUNIT#
DX: R31.9 Hematuria, unspecified (principal); N32.89 Other specified disorders of bladder; K92.1 Melena; Z87.891 Personal history of nicotine dependence

== ENCOUNTER → 2017-09-27 | Outpatient (CLI) | payer OTHER, MEDICAID ==
[~2017-09-27] MED LIST: IOPAMIDOL (ISOVUE-300) 100 ML BTL ONE
== END ==
LOC: FIMAGING 11:22
PROVIDERS: ATTEND Specialist
DX: M99.82 Other biomechanical lesions of thoracic region (principal); N28.9 Disorder of kidney and ureter, unspecified; N13.30 Unspecified hydronephrosis
CPT/HCPCS: 74177; Q9967

== ENCOUNTER 2017-10-19 11:35 | Inpatient (IN) | payer OTHER, MEDICAID ==
[2017-10-19] MEDS ORDERED: levOFLOXACIN 500 MG/DEXTROSE 100 ML IV ONE (11:49)
[2017-10-19] MEDS ORDERED: LR 1,000 ML IV ONE (11:50)
--- NOTE | 2017-10-19 12:33 | PDANEPAE ---
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 LUNG CANCER - L MASS REMOVED - YRS AGO. CURRENT BLADDER MASS - Congenital Disorder History Hx Congenital Disorders: No - GI History Hx Gastrointestinal Disorders: No - Other Health History Other Health History: "NERVOUS STOMACH". SEPTIC ARTHRITIS R KNEE - Chronic Pain History Chronic Pain: Yes (R KNEE, R SHOULDER) - Surgical History Prior Surgeries: JOSE KNEE SUGERIES X7 MOST RECENT WAS REPAIR PROSTHETIC DEVICE R KNEE. UMB HERNIA. INGUINAL HERNIA. CEREBRAL ANEURYSM SURGERY ANE Review of Systems Review of Systems: - Exercise capacity METS (RN): 4 METS ANE Patient History - Allergies Allergies/Adverse Reactions: sulfamethoxazole [From Bactrim] Allergy (Mild, Verified 08/07/12 14:56) Anxiety trimethoprim [From Bactrim] Allergy (Mild, Verified 08/07/12 14:56) Anxiety - Home Medications Home Medications: levOFLOXACIN [levAQUIN (*)] 500 mg PO DAILY@10 07/31/17 [Last Taken 08/27/17] Fluticasone Nasal [Flonase Nasal [place]] 1 - 2 sprays NASAL BID 08/28/17 [Last Taken Unknown] oxyCODONE IR [Oxycodone Ir (*)] 10 mg PO Q4-6PRN PRN 09/29/17 [Last Taken Unknown] Ativan 10/02/17 [Last Taken Unknown] - NPO status NPO Since - Liquids (Date): 10/18/17 NPO Since - Liquids (Time): 20:00 NPO Since - Solids (Date): 10/18/17 NPO Since - Solids (Time): 20:00 - Smoking Hx Smoking Status: Former smoker - Family Anes Hx Family Hx Anesthesia Complications: NEG ANE Labs/Vital Signs - Vital Signs Blood Pressure: 107/73 Heart Rate: 79 Respiratory Rate: 14 O2 Sat (%): 96 Height: 185.42 cm Weight: 83.915 kg ANE Physical Exam - Airway Neck exam: FROM Mallampati Score: Class 2 Mouth exam: dentures - Pulmonary Pulmonary: no respiratory distress - Cardiovascular Cardiovascular: regular rate and rhythym - ASA Status ASA Status: III ANE Anesthesia Plan Anesthesia Plan: general endotracheal anesthesia
[2017-10-19] MEDS ORDERED: MIDAZOLAM 2 MG/2 ML VIAL ONE (12:36)
[2017-10-19] MEDS ORDERED: PROPOFOL 200 MG/20 ML VIAL ONE (12:37)
[2017-10-19] MEDS ORDERED: ROCURONIUM 50 MG/5 ML VIAL ONE (12:38)
[2017-10-19] MEDS ORDERED: LIDOCAINE 2% 100 MG/5 ML SYR ONE (12:39)
--- NOTE | 2017-10-19 12:45 | PDHPUP ---
History & Physical Update H&P update statement: This history and physical update is based on an assessment of the patient which was completed after admission or registration (within 24 hours), but prior to the surgery/procedure. H&P update: no change in patient's condition since H&P completed
--- NOTE | 2017-10-19 12:53 | POSTOPPROG ---
Post Op Note Date of Operation: 10/19/17 Surgeon: Morelia Griffith (# [id number]) Anesthesia: GET(General Endotracheal) Pre-op Diagnosis: 1. Large bladder tumor 2. Right hydronephrosis Post-op Diagnosis: 1. Large bladder tumor 2. Severe right hydronephrosis Procedure: TURBT (lg) Findings: See op note Inf/Abcess present in the surg proc area at time of surgery?: No EBL: Minimal Complications: None Drains: Other (6 Fr. multilength right ureteral stent) Specimen(s): Bladder tumor
[2017-10-19] MEDS ORDERED: fentaNYL 100 MCG/2 ML INJ ONE ×2 (14:14→14:34)
[2017-10-19] MEDS ORDERED: ALBUTEROL 3 ML DEYVIAL IH PRN (15:19)
[2017-10-19] MEDS ORDERED: fentaNYL 100 MCG/2 ML INJ IVP PRN (15:19)
[2017-10-19] MEDS ORDERED: MEPERIDINE 25 MG/ML SYR IVP PRN (15:19)
[2017-10-19] MEDS ORDERED: NALOXONE HCL 0.4 MG/ML INJ IVP PRN (15:19)
--- NOTE | 2017-10-19 15:20 | POSTANESTH ---
Post Anesthetic Evaluation Cardiovascular Status: Similar to Pre-Op Cond Respiratory Status: Similar to Pre-op Cond. Level of Consciousness/Mental Status: Alert and Oriented Pain Control: Adequate, Prn Tx Ordered Nausea/Vomiting Control: Adequate, Prn Tx Ordered Complications Possibly Related to Anesthesia: None Noted
[2017-10-19] MEDS ORDERED: PROMETHAZINE HCL 25 MG/ML INJ IVP PRN (15:34)
[2017-10-19] MEDS ORDERED: OXYCODONE/APAP 5/325 TAB PO PRN (15:34)
[2017-10-19] MEDS ORDERED: OPIUM/BELLADONNA ALKALO SUPP PR PRN (15:34)
[2017-10-19] MEDS ORDERED: ONDANSETRON 4 MG/2 ML VIAL IVP PRN (15:34)
[2017-10-19] MEDS ORDERED: HYDROmorphONE/DILAUDID 1 MG/ML INJ IVP PRN (15:34)
[2017-10-19] MEDS ORDERED: LIDOCAINE 2% JELLY 5 ML TUBE TP PRN (15:34)
--- NOTE | 2017-10-19 17:04 | GOP ---
[f rep st] OPERATIVE REPORT DATE OF OPERATION: 10/19/2017 SURGEON: Morelia Griffith MD ANESTHESIA: General endotracheal. PREOPERATIVE DIAGNOSIS: 1. Large bladder tumor, greater than 5 cm. 2. Right hydronephrosis. POSTOPERATIVE DIAGNOSIS: 1. Large bladder tumor, greater than 5 cm. 2. Severe right hydronephrosis secondary to distal ureteral obstruction. PROCEDURE PERFORMED: 1. Transurethral resection of large bladder tumor. 2. Right retrograde pyelography with right ureteral stent placement (6-Citizen [place] multi-length). FINDINGS: Very large, grossly aggressive-appearing tumor that appears to grossly invade the muscularis propria along the trigone and right lateral wall. There was near complete obstruction of the distal right ureter as a result of the likely cancerous process, with stenting performed as noted above. SPECIMENS: Bladder tumor. ESTIMATED BLOOD LOSS: Minimal. INDICATIONS: This gentleman was recently found to have a large bladder tumor on cystoscopy that was performed as part of an evaluation for gross hematuria. Preoperative CT scan also revealed significant right-sided hydronephrosis and hydroureter, with possible obstruction related to the bladder tumor. The patient presents for operative management at this time. The indications for the procedures as well as potential risks and complications were discussed with the patient preoperatively. He appeared to understand, his questions were answered, and he wished to proceed. Written informed surgical consent was thereafter obtained. DESCRIPTION OF PROCEDURE: The patient was brought to the operating room and administered general endotracheal anesthesia. He was carefully placed in the dorsal lithotomy position on the cystoscopic table. The genital area was sterilely prepped with Betadine scrub and paint then draped in usual sterile fashion. Cystoscopy was initially performed with the 30-degree and 70-degree lenses through a 22-Citizen [place] sheath. Anterior urethra revealed no abnormalities. Posterior urethra revealed minimal prostatic enlargement and obstruction. The patient had previously undergone external radiation for prostate cancer treatment. The bladder neck was widely patent. Upon introduction of the scope into the bladder, a large blood clot was noted. I evacuated this from the bladder and then attempted to perform full panendoscopy. There was some slight bleeding from the surface of the tumor, making complete and thorough cystoscopy virtually impossible. However, the patient was noted to have a very large tumor along the right trigone that obliterated the visualization of the right ureteral orifice. There appeared to be some smaller satellite lesions that were immediately adjacent to the primary tumor site along the right lateral wall , lateral to the right trigone. No other obvious tumors were seen on panendoscopy, again keeping in mind that visualization was limited due to the bleeding from the tumor. The bladder wall was moderately trabeculated overall. The left ureteral orifice was normal in shape and position along the trigone. I then inserted the 26-Citizen [place] resectoscopic sheath with the [employer] resectoscope with a standard resecting loop. Using normal saline continuous flow, I then systematically and carefully resected the tumor. I ultimately was able to identify the intramural portion of the right ureter (after resection of the ureteral orifice mucosa), which appeared to be much larger in caliber than normal, likely as a result of longstanding obstruction at the level of the trigone. The tumor had a very solid and dense appearance to it. It had a broad base that appeared to involve the entire right side of the trigone, extending toward the midline. Also, it seemed to extend grossly toward the bladder neck, but did not obviously involve it. The previously noted smaller lesions along the adjacent lateral aspect of the tumor were as noted previously. Once the vast majority of the tumor had been removed, I then resected more deeply along the trigone to make sure that I obtained muscularis propria. Grossly, it appeared that the tumor likely invaded into the muscularis propria along a significant portion of the right and mid-trigone. I then used a button electrode to thoroughly cauterize and fulgurate the resected portion of the bladder. There was no obvious gross perforation of the bladder that had occurred as a result of the resection process. I then removed the resectoscopic instruments and reinserted the 25-Citizen [place] cystoscopic sheath with a 30-degree lens. I used a 5-Citizen [place] open-ended ureteral catheter to intubate what I thought was the ureteral orifice. This was confirmed to be the ureter with injection of contrast. The ureter was severely dilated with severe tortuosity just proximal to the pelvic inlet and also along the proximal aspect of the ureter just distal to the ureteropelvic junction. I was able to ultimately straighten out the ureter with the aid of a 5-Citizen [place] open-ended ureteral catheter, a Glidewire , and a standard 0.035 inch angle-tipped hydrophilic guidewire. Once the ureter had been straightened out, I was able to inject further contrast into the proximal ureter and renal pelvis. The right upper urinary tract system was diffusely severely dilated, including the renal pelvis and calices. I advanced the hydrophilic guidewire into the renal collecting system, as noted fluoroscopically. The ureteral catheter was removed. A 6-[place]izen [place] multi-length hydrophilic ureteral stent was advanced over the guidewire until it was properly positioned as seen fluoroscopically in the kidney and cystoscopically in the bladder. At this point, the tumor appeared to be fairly well resected. There was possibly some residual tumor that was invading into the muscularis propria, which I did not feel would be beneficial to attempt to completely resect. I did at least confirm that hemostasis was present at the conclusion of the case. If, for some reason, this tumor is not determined to be muscle invasive, then a repeat second-look resection would be warranted. The cystoscopic instruments were then removed and a 20-Citizen [place], 3-way Tello catheter inserted into the bladder with 15 cc of sterile fluid placed in the balloon. The catheter irrigated manually at the end of the case and the return was very light pink. The catheter was connected to bag drainage and continuous irrigation was initiated with normal saline as well. The patient was awakened, extubated, transferred to his bed, then taken to the recovery room. He tolerated the procedure well overall. COMPLICATIONS: None. DISPOSITION: He was transferred to the recovery room in stable condition. He will be admitted for postoperative care and continuous irrigation overnight. /[id number]/MODL MTDD
[2017-10-19] MEDS: oxyCODONE IR 5 MG TAB PO PRN (20:28)
[2017-10-19] MEDS: FLUTICASONE NASAL 120 SPRAYS/16 GM MDI EACHNARE SCH (20:30)
[2017-10-19] MEDS: D5W 1/2 NS 1,000 ML IV SCH (20:30)
[2017-10-20] MEDS: oxyCODONE IR 5 MG TAB PO PRN ×4 (02:14→20:33)
[2017-10-20] MEDS: D5W 1/2 NS 1,000 ML IV SCH (02:19)
[2017-10-20] MEDS: FLUTICASONE NASAL 120 SPRAYS/16 GM MDI EACHNARE SCH ×2 (09:40→20:35)
--- NOTE | 2017-10-20 10:26 | SOAPPROG ---
REBEKAAP Progress Note Assessment/Plan: Assessment: POD 1 s/p large TURBT & right ureteral stent placement - stable. Pt will need to be d/c'ed w/ his Tello catheter for about 1 week. Pt. is not confident he will be able to manage the Tello at home by himself. Plan: 1. Discharge planning for possible rehab placement or arranging of home health care. He is ready to be discharged from a surgical standpoint. 2. He will need to FU in my office later next week for Tello removal & discussion of pathology results. 3. Per pt. request, I will make another attempt to contact the pt's brother Rosalino at [phone]. Subjective: Had a "rough night", presumably to anxiety (which he felt as though the nurses were not sufficiently addressing). Doing better this AM. No pain. Objective: Vital Signs Temp Pulse Resp BP Pulse Ox 37.2 C 67 12 106/68 93 10/20/17 07:30 10/20/17 07:30 10/20/17 07:30 10/20/17 07:30 10/20/17 07:30 Laboratory Results 10/20/17 04:37 10/20/17 04:37 10/19/17 10/20/17 10/21/17 05:59 05:59 05:59 Intake Total 1250 Output Total 4000 Balance -2750 Physical Exam - Physical Exam General Appearance: WD/WN, alert, no apparent distress Abdomen: non-tender, soft Male Genitalia: other (urine nearly clear off CBI) Skin: warm/dry Neuro/Psych: alert ICD10 Worksheet Patient Problems: Problems Problem Status Onset Abdominal pain Acute Diarrhea Acute Dislocation of knee, right, closed Acute Vomiting Acute
--- NOTE | 2017-10-20 12:59 | ASMTCMCOM ---
CM Note CM Note Notes: Chart reviewed for discharge planning purposes. Patient s/p bladder tumor resection He states this has been more than he thought it would. Patient is very verbal and is requesting anxiety medication. He states he feels that was abrupt and condescending. He is agreeable to SNF for rehab purposes. Therapy entered room while I was speaking to him. He does not have good support locally. Esther his RN is attempting to call MD to obtain order for anti-anxiety medications. He has complex medical history. He has been to [facility] multiple times in the past and inferred he may not be welcome there. I will make referrals via allscripts for placement. CM to follow. Date Signed: 10/20/2017 12:58 PM Electronically Signed By:Tami Brandt RN
[2017-10-20] MEDS: LORazepam 1 MG TAB PO PRN ×2 (13:25→20:34)
--- NOTE | 2017-10-20 14:49 | PDIAF ---
- Diagnosis Diagnosis: TURBT Code Status: Full Code - Medication Management Discharge Medications: Medications to Continue on Transfer RX: levOFLOXACIN [levAQUIN (*)] 500 mg PO DAILY@10 07/31/17 [Last Taken 10:00] RX: Fluticasone Nasal [Flonase Nasal [place]] 1 - 2 sprays NASAL BID 08/28/17 [ Last Taken 10/19/17] RX: oxyCODONE IR [Oxycodone Ir (*)] 10 mg PO Q4-6PRN PRN 09/29/17 [Last Taken 08:00] Discharge Medications: Refer to the Discharge Home Medication list for PRN reason. - Orders Services needed: Physical Therapy, Occupational Therapy Isolation Type: None Diet Recommendation: no restrictions on diet - Follow Up Care Current Providers and Referrals: Capo Garcia MD [Primary Care Provider] -
[2017-10-21] MEDS: FLUTICASONE NASAL 120 SPRAYS/16 GM MDI EACHNARE SCH ×2 (08:59→20:12)
[2017-10-21] MEDS: oxyCODONE IR 5 MG TAB PO PRN ×4 (09:05→23:12)
[2017-10-21] MEDS: LORazepam 1 MG TAB PO PRN ×2 (14:15→18:24)
[2017-10-21] MEDS ORDERED: HYOSCYAMINE SULFATE 0.125 MG TAB PO PRN (15:18)
--- NOTE | 2017-10-21 21:32 | SOAPPROG ---
SOAP Progress Note Assessment/Plan: Assessment: S/P TURBT, shook placement Bladder spasms Plan: Transfer to [facility] tomorrow. B&O suppository and Levsin PRN for bladder spasms 10/21/17 21:30 Subjective: NAEON C/O feeling of urinary frequency q 20m Otherwise doing well Objective: Vital Signs Temp Pulse Resp BP Pulse Ox 36.8 C 73 18 98/95 H 94 10/21/17 20:00 10/21/17 20:00 10/21/17 20:00 10/21/17 20:00 10/21/17 20:00 Laboratory Results 10/20/17 04:37 10/20/17 04:37 10/20/17 10/21/17 10/22/17 05:59 05:59 05:59 Intake Total 1250 675 200 Output Total 4000 2100 750 Balance -2750 -1425 -550 Gen NAD CV regular Lungs normal effort Abd nondistended shook in place w stat lock, urine clear - Pending Discharge Pending Discharge Within 24 Hours: Yes Pending Discharge Date: 10/22/17 Pending Discharge Time: 11:00 ICD10 Worksheet Patient Problems: Problems Problem Status Onset Abdominal pain Acute Diarrhea Acute Dislocation of knee, right, closed Acute Vomiting Acute
[2017-10-22] MEDS: oxyCODONE IR 5 MG TAB PO PRN ×4 (04:25→20:19)
[2017-10-22] MEDS: FLUTICASONE NASAL 120 SPRAYS/16 GM MDI EACHNARE SCH ×2 (10:35→20:20)
[2017-10-22] MEDS: LORazepam 1 MG TAB PO PRN (20:19)
--- NOTE | 2017-10-22 22:11 | SOAPPROG ---
SOAP Progress Note Assessment/Plan: Assessment: S/P TURBT, shook placement Bladder spasms - improved w B&O Awaiting for SNF placement Plan: Transfer to SNF Monday. Continue shook to dependent drainage. B&O suppository and Levsin PRN for bladder spasms 10/22/17 22:08 10/22/17 22:10 Subjective: Doing well. Bladder discomfort much less. Aurelia diet Worked w PT +BM Objective: Vital Signs Temp Pulse Resp BP Pulse Ox 37.6 C 82 16 109/73 94 10/22/17 19:50 10/22/17 19:50 10/22/17 19:50 10/22/17 19:50 10/22/17 19:50 Laboratory Results 10/20/17 04:37 10/20/17 04:37 10/21/17 10/22/17 10/23/17 05:59 05:59 05:59 Intake Total 675 350 Output Total 2100 1450 1000 Balance -1425 -1100 -1000 Gen NAD Alert CV regular Lungs normal effort Abd soft shook in place, stat lock urine clear - Pending Discharge Pending Discharge Within 24 Hours: Yes Pending Discharge Date: 10/23/17 Pending Discharge Time: 11:00 ICD10 Worksheet Patient Problems: Problems Problem Status Onset Abdominal pain Acute Diarrhea Acute Dislocation of knee, right, closed Acute Vomiting Acute
[2017-10-23 08:30] VITALS: BP 100/67; PULSE 74; RESP 12; TEMP 98.1; O2SAT 92
[2017-10-23] MEDS: FLUTICASONE NASAL 120 SPRAYS/16 GM MDI EACHNARE SCH (09:52)
[2017-10-23] MEDS: oxyCODONE IR 5 MG TAB PO PRN ×2 (09:52→14:01)
--- NOTE | 2017-10-23 09:59 | PDIAF ---
- Diagnosis Diagnosis: TURBT Code Status: Full Code - Medication Management Discharge Medications: Medications to Continue on Transfer levOFLOXACIN [levAQUIN (*)] 500 mg PO DAILY@10 07/31/17 [Last Taken 10/19/17 10: 00] Fluticasone Nasal [Flonase Nasal Roundup] 1 - 2 sprays NASAL BID 08/28/17 [Last Taken 10/19/17] oxyCODONE IR [Oxycodone Ir (*)] 10 mg PO Q4-6PRN PRN 09/29/17 [Last Taken 08:00] Discharge Medications: Refer to the Discharge Home Medication list for PRN reason. PICC Care - Routine: N/A - Orders Services needed: Physical Therapy, Occupational Therapy Isolation Type: None Diet Recommendation: no restrictions on diet Diet Texture: Regular Texture Diet Tello: Yes (Remove Tello at 0900 on 10/26/2017) Wound Care Instructions: None Activity/Weight Bearing Restrictions: None - Follow Up Care Current Providers and Referrals: Capo Garcia MD [Primary Care Provider] -
[2017-10-23] MEDS: LORazepam 1 MG TAB PO PRN (14:01)
[2017-10-23] MEDS ORDERED: HYDROmorphone HCL/NS 0.5 MG/ML SYR IVP PRN (15:30)
--- NOTE | 2017-10-23 16:44 | ASDISCHSUM ---
Discharge Information Plan Status:SNF Medically Cleared to Leave:10/22/2017 Discharge Date:10/23/2017 03:29 PM CM D/C Disposition: ADT D/C Disposition:Alf Facility Projected Discharge Date:10/23/2017 11:00 AM Transportation at D/C: Discharge Delay Reason: Follow-Up Date:10/23/2017 11:00 AM Discharge Slot: Final Diagnosis: Placement Information Referral Type:*Fpc/SNF Referral ID:[id number] Provider Name:Nathalie Pierre [facility] Address 1:[address] [facility] Phone Number: Address 2: Fax Number: [facility]:[place] Selection Factors: State:[place] Referral Type:Palliative Care Referral ID:[id number] Provider Name:[facility] Address 1:[address] [facility] Phone Number: Address 2: Fax Number: [facility]:[place] Selection Factors: State:[place] Patient Contact Information Contact Name:TRISTIAN Relationship: Address: City:[place] Alternate Phone: State/Zip Code:[place] Email: Financial Information Financial Class:Medicare Primary Plan Desc:MEDICARE INPATIENT Primary Plan Number:[id number] Secondary Plan Desc:[place] Secondary Plan Number:[id number] Assessment Information [facility] CM Progress Note CM Note CM Note Notes: Chart reviewed for discharge planning purposes. Patient s/p bladder tumor resection He states this has been more than he thought it would. Patient is very verbal and is requesting anxiety medication. He states he feels that was abrupt and condescending. He is agreeable to SNF for rehab purposes. Therapy entered room while I was speaking to him. He does not have good support locally. Esther his RN is attempting to call MD to obtain order for anti-anxiety medications. He has complex medical history. He has been to [facility] multiple times in the past and inferred he may not be welcome there. I will make referrals via [facility] / [facility] for placement. CM to follow. Date Signed: 10/20/2017 12:58 PM Electronically Signed By:Tami Brandt RN Case Management Discharge Plan Note Case Management Discharge Discharge Order Complete? Answers: Yes Patient to Obtain Answers: Other Notes: [facility] Transportation Arranged Answers: Other Notes: [facility] W/C arranged by [facility] Transport will Pick (Date 10/23/2017 03:30 PM & Time) EMTALA Complete Answers: No Case Management Transport Answers: Yes Form Complete Faxed Final Orders Answers: Yes Agency/Facility Transfer Answers: Yes Report Printed & Faxed to Receiving Agency Family Notified Answers: No Discharge Comments Notes: met w/ pt for dispo planning. Updates sent to all referrals. [facility] has accepted pt. Pt is agreeable to going to [facility]. Pt is being discharged to [facility] today. An order has been put in for spiritual care. Pawel from palliative met w/ pt. Pt would like referral made to [facility] for outpatient palliative services. CM spoke w/ Vannessa FARAH and she will notify Dr. Griffith to put in order. Pt also spoke about frustrations of not being heard by Dr. Griffith. Pt notified Director of Case Management of this. DC orders sent to [facility]. provided JESSICA Palomares w/ phone number to give report. CM available for changes. Plan: [facility] Date Signed: 10/23/2017 04:39 PM Electronically Signed By:WESTON Mandel Intervention Information Intervention Type:*LAWSON-Signed Date of Service:10/20/2017 09:48 AM Patient Type:Observation Staff Member:Pratima Brunson Hours: Discipline: Severity: Comment: Intervention Type:*IM-Signed Date of Service:10/23/2017 10:50 AM Patient Type:Inpatient Staff Member:Pratima Brunson Hours: Discipline: Severity: Comment:
== END 2017-10-23 15:29 | DRG 669 ==
LOC: F1N 11:35 → F3E 18:04 → OBSVTOIN 10-20 15:15
PROVIDERS: ADMIT Specialist; ATTEND Specialist
DX: C67.0 Malignant neoplasm of trigone of bladder (principal); N13.1 Hydronephrosis with ureteral stricture, not elsewhere classified; Z85.46 Personal history of malignant neoplasm of prostate; I69.354 Hemiplegia and hemiparesis following cerebral infarction affecting left non-dominant side; Z86.19 Personal history of other infectious and parasitic diseases; Z96.651 Presence of right artificial knee joint
CPT/HCPCS: 97116-GP; 97162-GP; 97166-GO; 97530-GP; 97535-GO; C1758; C1769; C2625; G8978-GP-CJ; G8979-GP-CI; G8987-GO-CK; G8988-GO-CI; J1956; J2001; J2250; J2704; J3010

== ENCOUNTER 2017-12-18 08:16 | Day surgery (SDC) | payer OTHER, MEDICAID ==
[2017-12-18] MEDS ORDERED: FLUMAZENIL 0.5 MG/5 ML MDV IVP PRN (08:52)
[2017-12-18] MEDS ORDERED: MEPERIDINE 25 MG/ML SYR IVP PRN (08:52)
[2017-12-18] MEDS ORDERED: MIDAZOLAM 2 MG/2 ML VIAL IVP PRN (08:52)
[2017-12-18] MEDS ORDERED: HEPARIN 10,000 UNIT/10 ML MDV (1,000 UNIT/ML) IVP PRN (08:52)
[2017-12-18] MEDS ORDERED: GLUCAGON HCL 1 MG VIAL IVP PRN (08:52)
[2017-12-18] MEDS ORDERED: fentaNYL 100 MCG/2 ML INJ IVP PRN (08:52)
[2017-12-18] MEDS ORDERED: PROTAMINE SULFATE 50 MG/5 ML VIAL IVP PRN (08:52)
[2017-12-18] MEDS ORDERED: ALTEPLASE 2 MG VIAL IVP PRN (08:52)
[2017-12-18] MEDS ORDERED: NALOXONE HCL 0.4 MG/ML INJ IVP PRN (08:52)
[2017-12-18] MEDS ORDERED: NS 1,000 ML IV SCH (09:00)
[2017-12-18] MEDS ORDERED: NALOXONE HCL 0.4 MG/ML INJ ONE (09:29)
[2017-12-18] MEDS ORDERED: fentaNYL 100 MCG/2 ML INJ ONE (09:30)
[2017-12-18] MEDS ORDERED: MIDAZOLAM 2 MG/2 ML VIAL ONE (09:30)
[2017-12-18] MEDS ORDERED: FLUMAZENIL 0.5 MG/5 ML MDV IVP ONE (09:30)
[2017-12-18 09:31] LABS: PLATELET COUNT 247 10^3/uL (150-400)
[2017-12-18 09:40] LABS: INR 1.19 (0.83-1.16); PROTIME(PATIENT) 15.3 SEC (12.0-15.0)
--- NOTE | 2017-12-18 10:11 | PDGENHP ---
History & Physical Chief Complaint: Bone lesion History of Present Illness: 67 yo M w h/o chronic HCV, osteosarcoma, prostate ca , lung ca, and bladder ca with an FDG avid lesion in the right posterior body of T10. Tissue sampling requested for diagnosis and to determine future treatment strategy. Pertinent Past, Social, Family History: Non-contributory Relevant Physical Exam: BP 90s/60s which is at his baseline, resting comfortably , NAD Cardiorespiratory Assessment: RRR, normal resp effort
--- NOTE | 2017-12-18 10:12 | PDPROPOC ---
Sedation Plan of Care Sedation Plan of Care: vital signs stable (BP 90s/60s is pt's baseline), mental status noted, patient educated of risks, benefits, alternatives ( ) ASA Classification: ASA 3 Planned drugs: fentanyl, midazolam Mallampati Score: Class 1 Mallampati Reference Image: Patient passed 3-3-2 rule?: Yes
[2017-12-18] MEDS ORDERED: BUPIVACAINE 0.5% 30 ML SDV ONE (11:33)
[2017-12-18] MEDS ORDERED: LIDOCAINE 1% 300 MG/30 ML SDV ONE (11:34)
--- NOTE | 2017-12-18 12:03 | PDRADPN ---
Radiology Procedure Note Date of Procedure: 12/18/17 Radiologist: Kang Hooper Anesthesia: IV Sedation Pre-op Diagnosis: Bladder ca, prostate ca, lung ca, osteosarc Indication: T10 lytic lesion Procedure: Vertebral body bone biopsy Finding(s): See dicated report Inf/Abcess present in the surg proc area at time of surgery?: No Complications: No immediate Specimen(s): 7-8 passes made, but only 2 real cores obtained, mostly just fragments, all placed in formalin
[2017-12-18 13:57] VITALS: BP 101/66
== END 2017-12-18 13:37 | disposition home or self-care (01) ==
LOC: FIMAGING 08:16
PROVIDERS: ATTEND Radiology Diagnostic Radiology
PROC: 0PB44ZX Excision of Thoracic Vertebra, Percutaneous Endoscopic Approach, Diagnostic (ICD-10-PCS; principal; 2017-12-18 11:30)
DX: D75.9 Disease of blood and blood-forming organs, unspecified (principal); C67.5 Malignant neoplasm of bladder neck; Z85.46 Personal history of malignant neoplasm of prostate; Z85.830 Personal history of malignant neoplasm of bone; Z85.118 Personal history of other malignant neoplasm of bronchus and lung; Z87.891 Personal history of nicotine dependence
CPT/HCPCS: J2250; J2310; J3010

== ENCOUNTER → 2018-03-08 | Outpatient (CLI) | payer OTHER, MEDICAID | LOC: FIMAGING 14:30 → EDSTATUS 14:31 | PROVIDERS: ATTEND Nurse Practitioner | DX: Z08 Encounter for follow-up examination after completed treatment for malignant neoplasm (principal); Z85.118 Personal history of other malignant neoplasm of bronchus and lung; R05 Cough; M48.54XA Collapsed vertebra, not elsewhere classified, thoracic region, initial encounter for fracture; C67.9 Malignant neoplasm of bladder, unspecified; Z85.46 Personal history of malignant neoplasm of prostate ==

== ENCOUNTER 2018-10-30 13:01 | Emergency (ER) | payer OTHER, MEDICAID ==
--- NOTE | 2018-10-30 13:15 | EDPHY ---
H & P Time Seen by Provider: 10/30/18 13:02 HPI/ROS: CHIEF COMPLAINT: Hematuria HISTORY OF PRESENT ILLNESS: Patient is a 68-year-old man with history of bladder cancer treated previously with radiation and chemotherapy who noticed some hematuria today. He also has a history of epilepsy. He had a seizure this morning which is not unusual for him. 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 Also history of hepatitis C. The he states that he noticed about a tsp of blood in his urine this morning. He is feels like he may be retaining urine but is not sure. No fever. No dysuria. His urologist is Dr. Pfeiffer. Currently no pain. No chest pain or shortness of breath. No head injury. No headache. Severity: Moderate Modifying factors: None REVIEW OF SYSTEMS: Constitutional: denies: chills, fever, recent illness, recent injury EENTM: denies: blurred vision, double vision, nose congestion Respiratory: denies: cough, shortness of breath Cardiac: denies: chest pain, irregular heart rate, lightheadedness, palpitations Gastrointestinal/Abdominal: denies: abdominal pain, diarrhea, nausea, vomiting, blood streaked stools Genitourinary: denies: dysuria, frequency, hematuria, pain Musculoskeletal: denies: joint pain, muscle pain Skin: denies: lesions, rash, jaundice, bruising Neurological: denies: headache, numbness, paresthesia, tingling, dizziness, weakness Hematologic/Lymphatic: denies: blood clots, easy bleeding, easy bruising Immunologic/allergic: denies: HIV/AIDS, transplant 10 systems reviewed and negative except as noted EXAM: GENERAL: Well-appearing, well-nourished and in no acute distress. HEAD: Atraumatic, normocephalic. EYES: Pupils equal round and reactive to light, extraocular movements intact, sclera anicteric, conjunctiva are normal. ENT: TMs normal, nares patent, oropharynx clear without exudates. Moist mucous membranes. NECK: Normal range of motion, supple without lymphadenopathy or JVD. LUNGS: Breath sounds clear to auscultation bilaterally and equal. No wheezes rales or rhonchi. HEART: Regular rate and rhythm without murmurs, rubs or gallops. ABDOMEN: Soft, nontender, normoactive bowel sounds. No guarding, no rebound. No masses appreciated. BACK: No CVA tenderness, no spinal tenderness, step-offs or deformities EXTREMITIES: Right knee with chronic deformity, no erythema. At baseline. Normal range of motion, no pitting or edema. No clubbing or cyanosis. NEUROLOGICAL: Cranial nerves II through XII grossly intact. Normal speech, normal gait. 5/5 strength, normal movement in all extremities, normal sensation , normal reflexes PSYCH: Normal mood, normal affect. SKIN: Warm, dry, normal turgor, no visible rashes or lesions. Source: Patient - Medical/Surgical History Hx Asthma: No Hx Chronic Respiratory Disease: Yes Hx Diabetes: No Hx Cardiac Disease: No Hx Renal Disease: No Hx Cirrhosis: No Hx Alcoholism: No Hx HIV/AIDS: No Hx Splenectomy or Spleen Trauma: No Other PMH: Epilepsy, bladder cancer post radiation, prostate cancer post radiation, left lower lobe lung cancer post lobectomy, osteosarcoma right knee post prosthesis with a chronic infection, cerebral aneurysm post coiling - Family History Significant Family History: No pertinent family hx - Social History Smoking Status: Former smoker Alcohol Use: None Constitutional: Initial Vital Signs Temperature (C) 36.9 C 10/30/18 13:11 Heart Rate 94 10/30/18 13:11 Respiratory Rate 16 10/30/18 13:11 Blood Pressure 115/75 10/30/18 13:11 O2 Sat (%) 97 10/30/18 13:11 O2 Delivery Mode Room Air Allergies/Adverse Reactions: sulfamethoxazole [From Bactrim] Allergy (Mild, Verified 10/30/18 13:19) Anxiety trimethoprim [From Bactrim] Allergy (Mild, Verified 10/30/18 13:19) Anxiety Home Medications: Medication Instructions Recorded levOFLOXACIN [levAQUIN (*)] 500 mg PO DAILY@10 07/31/17 oxyCODONE IR [Oxycodone Ir (*)] 10 mg PO Q4-6PRN PRN 09/29/17 Tamsulosin HCl [Flomax 0.4 MG (*)] 0.4 mg PO DAILY #10 cap 10/30/18 Medical Decision Making ED Course/Re-evaluation: 1:38 p.m. the patient's postvoid residual is only 62cc. His Tello catheter is not indicated. He has no symptoms consistent with urinary tract infection. He is currently on Levaquin daily. We will send the urine for cultures and have him follow up with Dr. Panchal. He is calling for an appointment this week. We discussed indications for returning such as urinary retention, fever etc. 3:20 p.m. patient is not yet provided urine sample. He has been encouraged to drink but has not really been doing so. I encouraged him again. He denies distension or pain. Is 3:30 p.m. The patient is now asking to go. He does not wish to wait and give us a urine sample. He is confident that he is able to urinate. Differential Diagnosis: Partial list of the Differential diagnosis considered include but were not limited to; hematuria, infection, bladder cancer, urinary retention and although unlikely based on the history and physical exam, I also considered rupture, sepsis. Departure - Departure Disposition: Home, Routine, Self-Care Clinical Impression: Hematuria Qualifiers: Hematuria type: gross Qualified Code(s): R31.0 - Gross hematuria Bladder cancer Qualifiers: Bladder location: unspecified site Qualified Code(s): C67.9 - Malignant neoplasm of bladder, unspecified Condition: Good Instructions: Bladder Cancer (DC), Hematuria (ED) Referrals: Patient,NotPresent [Unknown] - As per Instructions Morelia Griffith MD [Medical Doctor] - 2-3 days, call for appt. Prescriptions: Tamsulosin HCl [Flomax 0.4 MG (*)] 0.4 mg PO DAILY #10 cap
[2018-10-30 15:45] VITALS: BP 118/80
== END 2018-10-30 15:54 | disposition home or self-care (01) ==
LOC: EDUNIT# → EDBD
DX: C67.9 Malignant neoplasm of bladder, unspecified (principal); R31.0 Gross hematuria; C40.21 Malignant neoplasm of long bones of right lower limb; T85.79XD Infection and inflammatory reaction due to other internal prosthetic devices, implants and grafts, subsequent encounter; Z85.46 Personal history of malignant neoplasm of prostate; Z85.118 Personal history of other malignant neoplasm of bronchus and lung

== ENCOUNTER → 2018-12-20 | Outpatient (CLI) | payer OTHER, MEDICAID | LOC: FIMAGING 12:40 | PROVIDERS: ATTEND Internal Medicine Hematology & Oncology | DX: R07.81 Pleurodynia (principal) ==

== ENCOUNTER → 2018-12-26 | Outpatient (CLI) | payer OTHER, MEDICAID | LOC: FIMAGING 12:53 | PROVIDERS: ATTEND Nurse Practitioner | PROC: 0W993ZZ Drainage of Right Pleural Cavity, Percutaneous Approach (ICD-10-PCS; principal; 2018-12-26) | DX: J90 Pleural effusion, not elsewhere classified (principal) ==

== ENCOUNTER 2019-02-20 17:37 | Inpatient (IN) | payer OTHER, MEDICAID | END 2019-02-23 14:51 | disposition home health service (06) | LOC: F3N 02-21 16:25 ==